=== PATIENT | male | born 1945 | race Caucasian/White ===

== ENCOUNTER 2019-03-17 11:26 | Inpatient (IN) ==
[2019-03-17 13:04] LABS: BASO# 0.02 X1000 (0.0-0.2); BASO% 0.3 % (0.0-0.8); EOS# 0.06 X1000 (0.0-0.7); HEMOGLOBIN 10.6 g/dL (14.0-18.0); IMM GRAN# 0.03 X1000 (0.0-0.04); IMM GRAN% 0.5 % (0.0-0.5); LYMPH# 0.24 X1000 (1.2-3.4); LYMPH% 3.9 % (20.5-51.1); MCH 31.3 PG (27-31); MCHC 33.1 g/dL (33-37); MCV 94.4 FL (81-99); MONO# 0.47 X1000 (0.11-0.59); MONO% 7.6 % (1.7-9.3); MPV 9.8 FL (7.4-10.4); NEUT% 86.7 % (42.2-75.2); PLT 210 X1000 (130-400); RBC 3.39 XMIL (4.7-6.1); RDW 15.7 % (11.5-14.5); WBC 6.22 X1000 (4.8-10.8)
--- NOTE | 2019-03-17 13:21 | EKG Report ---
Test Performed on : 03/17/2019 12:39:14 PM Test Reason : weakness Blood Pressure : / mmHG Vent. Rate : 060 BPM Atrial Rate : 060 BPM P-R Int : 284 ms QRS Dur : 138 ms QT Int : 468 ms P-R-T Axes : 070 -57 008 degrees QTc Int : 468 ms AV dual-paced rhythm with prolonged AV conduction Abnormal ECG When compared with ECG of 13-FEB-2019 19:38, (Unconfirmed) Electronic ventricular pacemaker has replaced Electronic atrial pacemaker Unconfirmed Result
[2019-03-17 13:24] LABS: AMYLASE 93 U/L (20-200); CK PROFILE 176 U/L (24-204); LIPASE 90 U/L (13-60)
[2019-03-17 13:29] LABS: AGAP 12; ALB/GLOB RATIO 1.2; ALBUMIN 4.1 g/dL (3.5-5.0); ALKALINE PHOSPHATASE 98 U/L (32-122); BUN 74 mg/dL (8-22); CALCIUM 9.3 mg/dL (8.8-10.2); CHLORIDE 97 mmol/L (98-107); COSMO 282; CREATININE 4.8 mg/dL (0.7-1.2); GLUCOSE 126 mg/dL (70-104); GOT 34 U/L (10-34); GPT 39 U/L (10-44); SODIUM 129 mmol/L (136-145); TCO2 20 mmol/L (25-35); TOTAL BILIRUBIN 0.65 mg/dL (0.20-1.00); TOTAL PROTEIN 7.6 g/dL (6.3-8.3)
[2019-03-17 13:30] LABS: POTASSIUM 7.9 mmol/L (3.5-5.1)
[2019-03-17] MEDS ORDERED: CALCIUM CHLORIDE 1 GM in NS 100 ML IV ONE (13:30)
[2019-03-17] MEDS ORDERED: ALBUTEROL NEB INH ONE (13:30)
[2019-03-17] MEDS ORDERED: HUMULIN R IV ONE (13:32)
[2019-03-17] MEDS ORDERED: D50W SYRINGE IV ONE (13:32)
--- NOTE | 2019-03-17 13:46 | ED EKG INTERP ---
This chart was entered by Laila De La Cruz Scribe, acting as scribe for Lilly Quiroz MD. EKG Interpretation - EKG Time of EKG reading by physician:: 12:39 EKG Read and Signed by:: Lilly Quiroz EKG Interpretation (*Must complete 3 of following elements*): Abnormal Rate: 60 Rhythm: AV dual paced rhythm w/ prolonged AV conduction [place]: normal QRS: normal OK Interval: prolonged ST Wave: normal Attestation - Physician/ SUSAN Attestation Patient care was provided by Advanced Practice Provider:: No The physician spent face to face time with patient:: Yes Advanced Practice Provider documentation review:: Supervising physician onsite and consulted in the evaluation and care of this patient. The physician did have a face to face encounter with the patient. This chart was documented by the indicated scribe, (Laila De La Cruz Scribe) and accurately reflects the services I performed and decisions made by me, Lilly Quiroz MD, as attested by the provider's signature.
--- NOTE | 2019-03-17 14:25 | PROVIDER DOCUMENTATION ---
This chart was entered by Kika Watkins Scribe, acting as scribe for Lilly Quiroz MD. HPI-General Adult - General Chief Complaint: Fall Stated Complaint: FALL Time Seen by Provider: 03/17/19 11:56 Source: patient, family (/son and grandson) Allergies/Adverse Reactions: Patient Allergies Allergy/AdvReac Type Severity Reaction Status Date / Time No Known Allergies Allergy Verified 01/17/16 23:52 Home Medications: Home Medication List Medication Instructions Recorded Confirmed Last Taken Type B2/Vits A,C,E/Lut/Zeaxanth/Min 1 cap PO DAILY 09/04/15 10/05/18 10/05/18 06:00 History [Icaps Tablet] Furosemide [Lasix] 80 mg PO DAILY 09/04/15 10/05/18 10/04/18 08:00 History [place]-3 Fatty Acids [Fish Oil] 2,400 mg PO DAILY 09/04/15 10/05/18 10/05/18 06:00 History Warfarin [Coumadin] 5 mg PO DAILY 01/17/16 10/05/18 10/04/18 21:00 History ATORVAstatin [Lipitor] 20 mg PO DAILY 10/04/18 10/05/18 10/04/18 21:00 History Amiodarone HCl 200 mg PO DAILY 10/04/18 10/05/18 10/05/18 06:00 History Diltiazem HCl [Cartia Xt] 180 mg PO DAILY 10/04/18 10/05/18 10/05/18 06:00 History Melatonin 8 mg PO HS 10/04/18 10/05/18 Unknown History Metoprolol Tartrate 25 mg PO BID 10/04/18 10/05/18 10/05/18 06:00 History Omeprazole 40 mg PO DAILY 10/04/18 10/05/18 10/05/18 06:00 History Pioglitazone HCl [Pioglitazone] 15 mg PO DAILY 10/04/18 10/05/18 10/04/18 08:00 History Sitagliptin Phos/Metformin HCl 1 ea PO DAILY 10/04/18 10/05/18 10/04/18 08:00 History [Janumet 50-1,000 mg Tablet] Zolpidem Tartrate 5 mg PO HS 04/02/19 04/03/19 Unknown History - History of Present Illness -Gen Adult Nature of Presenting Problems: 73 yowm presents to the ed with c/o generalized weakness with frequent falls. pt sts in last 24hrs he has fell 3x and in last 2 weeks has fell up to 15x. pt has bandage noted on rt lateral elbow from fall and has skin tear to lateral rt lower arm near wrist. pt has bruising noted to BUE. pt sts the weakness has been present 2 weeks and has been getting worse since onset. pt does have an appointment next week with dr santos to start dialysis. pt was sent to ed by dr leigh PCP for weakness. pt denies ESQUIVEL and denies LOC. pt has never hit head with falls sts he just becomes weak and slides to the floor from wheelchair or standing position Location of Pain/Injury: reports: upper extremity, lower extremity Quality of Pain: reports: other (weakness) Onset/Duration: reports: other (2 weeks) Timing: reports: still present, intermittent, getting worse Context/Activities at Onset: reports: light activity Modifying Factors: improves with: nothing Associated Symptoms: reports: weakness, trouble walking. denies: chest pain, diarrhea, fever/chills, headaches, nausea, shortness of breath, vomiting Similar Symptoms Previously?: Yes (weakness ) Recently seen or treated by another doctor?: Yes (dr leigh pcp sent to ed) Review of Systems - Adult - REVIEW OF SYSTEMS - ADULT Constitutional: denies: chills, fever Eyes: reports: no symptoms reported Ears, Nose, Mouth & Throat: reports: no symptoms reported Cardiovascular: denies: chest pain, palpitations, syncope Respiratory: denies: cough, shortness of breath, wheezing Gastrointestinal: denies: abdominal pain, diarrhea, nausea, vomiting Genitourinary: reports: no symptoms reported Musculoskeletal: reports: see HPI, muscle weakness. denies: back pain, neck pain Integumentary: reports: no symptoms reported Neurological: denies: dizziness/vertigo, headache/migraines Psychiatric: reports: no symptoms reported Endocrine: reports: no symptoms reported Hematologic/Lymphatic: reports: see HPI, easy bruising Allergic/Immunologic: reports: no symptoms reported All Other Systems: Reviewed and Negative Past History - Adult - PAST MEDICAL HISTORY-ADULT Review of Records: reports: Old Records Reviewed, Nursing Assessment Review, Medications Reviewed, Social history reviewed & non-contributory. Major Childhood Illnesses: reports: denies history Cardiovascular: reports: A-Fib, CHF, HTN, hyperlipidemia Respiratory: reports: COPD Gastrointestinal: reports: GERD Genitourinary: reports: kidney disease Musculoskeletal: reports: denies history Hand Dominance: Right Handed Neurological: reports: denies history Psychiatric: reports: denies history Endocrine/Immune: reports: Diabetes Diabetes Type: Type 2 Other Conditions: reports: other cancer (skin) - PRIOR SURGERIES/PROCEDURES Surgical/Procedure History: reports: pacemaker, tonsillectomy, orthopedic (extremity), joint replacement (total knee) - IMMUNIZATION STATUS Childhood Immunizations: See Nurse Assessment Flu Vaccine: See Nurse Assessment - FAMILY HISTORY Family History: reviewed, not pertinent - SOCIAL HISTORY Smoking: denies Substance Use: denies Living Situation: family Physical Exam-General - PHYSICAL EXAM-ADULT Initial Vital Signs Reviewed: Yes - CONSTITUTIONAL General Appearance: alert, no apparent distress, obese, other (generalized weakn ess) - EYES Eyes: PERRL/EOMI, pink conjunctivae - HEAD, EARS, NOSE, MOUTH & THROAT HENMT: moist mucous membranes - NECK Neck: non-tender, full range of motion, supple, normal inspection - RESPIRATORY Respiratory: chest non-tender, lungs clear, normal breath sounds - CARDIOVASCULAR Cardiovascular: normal peripheral pulses, regular rate, rhythm - CHEST (BREASTS) Chest/Breast: deferred - GASTROINTESTINAL (ABDOMEN) Abdominal Exam: normal bowel sounds, non tender, soft - GENITOURINARY Male Genitalia: deferred Rectal Exam: deferred Hemoccult Exam: deferred - LYMPHATIC Lymphatic: no adenopathy - MUSCULOSKELETAL Back Exam: normal inspection, no CVA tenderness, no vertebral tenderness Extremity: normal capillary refill, pelvis stable, erythema (BUE and bandage in place on rt lateral elbow and skin tear noted to rt arm lateral above wrist), other (pt c/o BUE weakness and has hard time holding BUE arms up due to weakness but has firm branch library clerk strength. pt can hold BLE up but sts when he tries to ambulate legs become weak and can not support his weight). negative: normal gait (secondary to weakness with frequent falls), tenderness - SKIN Integumentary: warm/dry, erythema (BUE), laceration(s) (skin tear noted to rt lower lateral arm) - NEUROLOGIC Neurologic: abnormal gait, other (proximal muscle weakness). negative: facial droop - PSYCHIATRIC Psych/Mental Status: normal mood/affect, normal thought content, normal thought process, oriented x 3 Progress - PLAN OF CARE/RESULTS Progress/Plan/Lab Results: Vital Signs - 8 hr 03/17/19 11:31 Temperature 97.7 F Pulse Rate 60 Respiratory Rate 16 Blood Pressure 107/53 O2 Sat by Pulse Oximetry 99 Orders Category Date Time Status EKG [EKG] Stat Ther 03/17/19 11:41 Ordered Result Diagrams: 03/17/19 12:14 03/17/19 12:14 - CONSULTS/PCP/HOSPITALIST Notification #1 *Consult/PCP/Hospitalist*: Dr Kumar Time Discussed: 13:55 Reason/Comments: need dialysis access Consult Disposition: other (Dr Kumar will see patient in hospital) #2 Consult: Alia Time Discussed: 14:23 Consult Disposition: Admit Departure - Departure Date of Disposition Decision: 03/17/19 Time of Disposition Decision: 14:24 DIAGNOSIS: Hyperkalemia, Proximal muscle weakness Disposition: ADMITTED INPATIENT 09 Certified Medical Emergency: Emergent Condition: Critical Referrals and Follow-Ups: Hair Leigh MD [Primary Care Provider] - - Critical Care Note This patient required my direct & personal management of CC.: Yes Total Time (mins): 31 Critical Care Statement: This patient required my direct personal management to treat or rule out processes, the absence of which, could potentiallly result in sudden, clinically significant life or limb threatening deterioration. Attestation - Physician/ SUSAN Attestation Patient care was provided by Advanced Practice Provider:: No The physician spent face to face time with patient:: Yes Advanced Practice Provider documentation review:: Supervising physician onsite and consulted in the evaluation and care of this patient. The physician did have a face to face encounter with the patient. This chart was documented by the indicated scribe, (Kika Watkins Scribe) and accurately reflects the services I performed and decisions made by me, Lilly Quiroz MD, as attested by the provider's signature.
[2019-03-17] MEDS ORDERED: NS 2,000 ML MISC PRN (14:30)
[2019-03-17] MEDS ORDERED: TYLENOL PO PRN (15:23)
[2019-03-17] MEDS ORDERED: ZOFRAN IV PRN (15:23)
--- NOTE | 2019-03-17 15:57 | HISTORY AND PHYSICAL ---
HISTORY OF PRESENT ILLNESS: This is a 73-year-old patient of Dr. Hair Leigh. He said he has been a little weaker and falling. He has had end-stage renal disease and it appears that his azotemia is at the point he needs to start dialysis. PAST MEDICAL HISTORY: Atrial fibrillation, diabetes mellitus type 2, diastolic heart failure, COPD, hyperlipidemia, pulmonary hypertension last measured in September 2017, pulmonary artery pressures are 88 mmHg, history of hypertension. PAST SURGICAL HISTORY: He has had a right knee arthroplasty, tonsillectomy, right ear and right ankle surgeries. ALLERGIES: No notable allergies. FAMILY HISTORY: Notable for heart disease in mother. Colon cancer and ovarian cancer in his sister. SOCIAL HISTORY: He does not smoke or drink or use drugs. He is . REVIEW OF SYSTEMS: General: He does not describe any weight gain or loss, fever, chills. HEENT: No change in visual or hearing acuity. Neck: No neck pain or cervical adenopathy. Respiratory: No increased work of breathing or dyspnea. Cardiovascular: No chest pain or tachy palpitation. Gastrointestinal and Genitourinary: No gross hematuria or dysuria. Musculoskeletal/Neurologic: No significant complaints. Endocrinologic/Hematologic: No significant history. PHYSICAL EXAMINATION: VITAL SIGNS: In the emergency room, temperature 97.7 degrees, pulse 62, respirations 18, blood pressure 130/62. He just finished getting his Vas-Cath in his right groin. GENERAL: He is awake and alert, oriented, pleasant. NECK: No distended neck veins. HEENT: Pupils are equal. Conjunctivae pink. Sclerae clear. CVP less than 6 cm. Oral and nasal mucosa unremarkable. LUNGS: Clear anterolateral. CARDIOVASCULAR EXAM: Regular rhythm and rate without murmur or S3. ABDOMEN: No distention of the abdomen. No complaints of abdominal pain. EXTREMITIES: Vas-Cath in the right femoral triangle. No pedal edema. SKIN: No skin lesions. NECK: Supple. No cervical adenopathy. LABORATORY DATA: White count 6220, hematocrit 32, platelet count 210,000. Sodium 129, potassium 7.9, chloride 97. BUN 76, creatinine 4.8. Albumin is 4.1, lipase is 90, amylase 93. ASSESSMENT AND PLAN: 1. End-stage renal disease stage 5 D. Preparing him for hemodialysis. We will talk to Dr. Antonio, but he does have hyperkalemia, and so I think we will go ahead and give him an amp of calcium gluconate, but he plans on doing dialysis today. 2. History of diastolic heart failure. He appears to be well compensated at this time. 3. Diabetes mellitus type 2. We will check blood sugars, put him on pattern sugars and sliding scale. 4. Hypertensive. We will watch his blood pressure. 5. History of hyperlipidemia. 6. Obstructive sleep apnea. 7. History of pulmonary hypertension with underlying chronic obstructive pulmonary disease. Air and gas exchange seem to be good. 8. Atrial fibrillation which is paroxysmal. Appears to be in sinus rhythm at this time. MEDICATIONS: He takes Lipitor 20 mg a day, amiodarone 200 mg a day, multivitamin, diltiazem or Cartia XT 180 mg a day, furosemide 80 mg p.o. daily, melatonin 8 mg at bedtime, metoprolol 25 mg b.i.d., fish oil 2500 mg p.o. daily, omeprazole 40 mg a day, pioglitazone 15 mg a day, Janumet 50- 1000 mg daily, Coumadin 5 mg daily, zolpidem or Ambien 5 mg at bedtime. We will continue all those. We will check his T4, TSH, B 12 and folate. We will make sure and follow his magnesium. Dr. Antonio of course will be starting him on hemodialysis. cc: Alfonso Alegre MD
[2019-03-17] MEDS: DUONEB (A & A) INH SCH ×2 (16:00→22:29)
[2019-03-17 19:34] LABS: INR 3.08; PROTIME 32.7 Seconds (11.0-16.0)
--- NOTE | 2019-03-17 19:42 | Diag Imaging Result Doc PS360 ---
EXAM: CHEST-PORTABLE INDICATION: sob; line placed TECHNIQUE: One view COMPARISON: 10/04/2018 FINDINGS: There is mild chronic interstitial thickening bilaterally, stable. The lungs are grossly clear, otherwise. There is no discrete pleural fluid collection or pneumothorax. The cardiomediastinal silhouette and central vasculature are grossly unremarkable. The pacemaker is stable. IMPRESSION: Stable chest with no definite acute pathology by plain radiograph. Electronically signed by Mele De La Cruz 03/17/2019 7:39 PM
[2019-03-17] MEDS: HUMULIN R SUBQ SCH ×2 (19:52→20:02)
[2019-03-17] MEDS: COUMADIN PO SCH (20:20)
--- NOTE | 2019-03-17 22:09 | OPERATIVE NOTE ---
PROCEDURE DATE: 03/17/2019 PROCEDURE PERFORMED: Right femoral vein Vas-Cath placement. SURGEON: Andi Kumar MD PREOPERATIVE DIAGNOSES: 1. Hyperkalemia. 2. Chronic renal failure. POSTOPERATIVE DIAGNOSES: 1. Hyperkalemia. 2. Chronic renal failure. FINDINGS: The right common femoral vein was identified in its normal anatomic position in the groin. It was compressible with no clot DESCRIPTION OF PROCEDURE: After informed consent was obtained, the right groin was prepped and draped in a sterile fashion. Local anesthesia was 1% lidocaine. We made a small stab incision. We accessed the right common femoral vein with ultrasound guidance. We then passed the guidewire without difficulty. We dilated the tract sequentially and then passed the Trialysis catheter. Blood came back in each lumen spontaneously. We then flushed each lumen with saline. We secured the flange to the skin with the nylon contained within the tray. ChloraPrep was applied additionally after we finished, and then a sterile OpSite was applied. He tolerated it well. cc: Andi Kumar MD [facility]
--- NOTE | 2019-03-17 22:56 | NEPHROLOGY CONSULTATION ---
DATE: 03/17/2019 REASON FOR CONSULTATION: Life-threatening hyperkalemia. HISTORY OF PRESENT ILLNESS: Mr. Green is a 73-year-old white male who has diabetes, hypertension, heart failure, etc. He has severe pulmonary hypertension. We have been discussing renal replacement therapy with him in the outpatient arena, but he has been unwilling to make any decisions. At his last encounter we provided written modality education and then arranged for him to come for a formal evaluation. His states he has interest in home dialysis. He has never had abdominal surgery. At any rate, he came to the hospital at this time because of profound weakness. These episodes have been increasing in severity and have resulted in falls or near falls over the last 2 weeks. He has never hit his head, frequently simply slides to the floor, perhaps as many as 15 falls in the last 2 weeks. He came to the emergency room where his initial evaluation found blood pressure 107/53 with heart rate 60 and respirations of 16. His initial EKG had wide complex but suggests pacing. He did have prolonged AV conduction but did not meet pattern for bundle branch block. His initial laboratory data found potassium 7.9, creatinine 4.8. PAST MEDICAL HISTORY: As above. HOME MEDICATIONS: Reviewed list includes multivitamin, furosemide, warfarin, atorvastatin, amiodarone, diltiazem, melatonin, metoprolol, omeprazole, pioglitazone, sitagliptin, metformin, zolpidem. ALLERGIES: None. SOCIAL HISTORY: He is , lives with his . FAMILY HISTORY: Otherwise noncontributory. REVIEW OF SYSTEMS: Otherwise noncontributory. PHYSICAL EXAMINATION: Vital Signs: Blood pressure 130/62, heart rate 62, respirations 18, afebrile. General: No acute distress. Skin: Warm and dry. Conjunctivae are pink. Neck: Veins are not distended. Heart: Regular. No gallops. Lungs: Equal. No crackles. Abdomen: Soft, nontender. Bowel sounds present. Extremities: No edema, clubbing or cyanosis. IMPRESSION: Life-threatening hyperkalemia in the context of stage 5 chronic kidney disease. I have counseled the patient and family regarding the severity of his illness. I have reviewed his initial care with the ER team and also have consulted Dr. Kumar for placement of Vas-Cath, and we will employ hemodialysis this afternoon. If he is interested in home dialysis, then we will work to facilitate that as rapidly as possible. cc: Reji Antonio MD
[2019-03-18 00:17] LABS: URINE SOURCE CLEAN CATCH
[2019-03-18 00:20] LABS: BILIRUBIN URINE NEGATIVE (NEGATIVE); BLOOD URINE NEGATIVE (NEGATIVE); COLOR YELLOW; GLUCOSE URINE TRACE mg/dL (NEGATIVE); KETONE URINE NEGATIVE (NEGATIVE); LEUKOCYTES URINE NEGATIVE (NEGATIVE); NITRITE URINE NEGATIVE (NEGATIVE); PROTEIN URINE TRACE mg/dL (NEGATIVE); SP GRAVITY URINE 1.013; TURBIDITY URINE CLEAR (CLEAR); UROBILINOGEN URINE NORMAL (NORMAL)
[2019-03-18 00:21] LABS: UR EPITHELIAL CELLS <10 /HPF (<10); URINE BACTERIA NEGATIVE /HPF; URINE RBC <10 /HPF (<10); URINE WBC <10 /HPF (<10)
[2019-03-18] MEDS: DUONEB (A & A) INH SCH ×4 (02:56→22:19)
[2019-03-18] MEDS: HUMULIN R SUBQ SCH ×4 (06:06→20:48)
[2019-03-18 06:36] LABS: INR 2.87; PROTIME 30.9 Seconds (11.0-16.0)
[2019-03-18 06:48] LABS: ALB/GLOB RATIO 1.2; ALBUMIN 3.7 g/dL (3.5-5.0); CALCIUM 8.8 mg/dL (8.8-10.2); CREATININE 4.5 mg/dL (0.7-1.2); MAGNESIUM 2.1 mg/dL (1.5-2.7); TOTAL BILIRUBIN 0.59 mg/dL (0.20-1.00); TOTAL PROTEIN 6.8 g/dL (6.3-8.3)
[2019-03-18 07:05] LABS: BASO# 0.01 X1000 (0.0-0.2); BASO% 0.2 % (0.0-0.8); EOS# 0.03 X1000 (0.0-0.7); EOS% 0.6 % (0.0-10.0); HEMOGLOBIN 8.8 g/dL (14.0-18.0); LYMPH# 0.37 X1000 (1.2-3.4); LYMPH% 7.6 % (20.5-51.1); MCH 31.1 PG (27-31); MCHC 32.6 g/dL (33-37); MCV 95.4 FL (81-99); MONO# 0.61 X1000 (0.11-0.59); MONO% 12.4 % (1.7-9.3); MPV 10.1 FL (7.4-10.4); NEUT# 3.88 X1000 (1.4-6.5); NEUT% 79.2 % (42.2-75.2); PLT 153 X1000 (130-400); RBC 2.83 XMIL (4.7-6.1); RDW 15.8 % (11.5-14.5)
[2019-03-18 07:32] LABS: POTASSIUM 6.2 mmol/L (3.5-5.1)
--- NOTE | 2019-03-18 08:18 | EKG Report ---
Test Performed on : 03/18/2019 07:17:10 AM Test Reason : hyperkalemia Blood Pressure : / mmHG Vent. Rate : 063 BPM Atrial Rate : 063 BPM P-R Int : 154 ms QRS Dur : 106 ms QT Int : 438 ms P-R-T Axes : 066 011 027 degrees QTc Int : 448 ms Normal sinus rhythm. Normal ECG When compared with ECG of 17-MAR-2019 12:39, (Unconfirmed) no pacing complexes are evident Confirmed by Laith CARABALLO, Bhupinder Real ([id number]) on 03/18/2019 9:18:31 AM
--- NOTE | 2019-03-18 08:44 | Diag Imaging Result Doc PS360 ---
EXAM: CHEST-PORTABLE INDICATION: sob TECHNIQUE: One view COMPARISON: 03/17/2019 FINDINGS: Chronic appearing interstitial thickening bilaterally is again noted that is stable. No new consolidation is identified. Cardiac silhouette is stable. IMPRESSION: Stable chest. Electronically signed by Mele De La Cruz 03/18/2019 8:42 AM
[2019-03-18] MEDS ORDERED: TIGHT: 0.2 ML/HR FOR DIALYSIS MISC PRN (11:53)
[2019-03-18] MEDS ORDERED: HEPARIN IV PRN (11:53)
[2019-03-18] MEDS ORDERED: NS 2,000 ML MISC PRN (11:53)
--- NOTE | 2019-03-18 14:43 | GENERAL SURGERY PROGRESS NOTE ---
DATE: 03/18/2019 Mr. Green's right groin site is dry. He tolerated dialysis satisfactorily. No further recommendations at this time. cc: Andi Kumar MD
--- NOTE | 2019-03-18 15:49 | NEPHROLOGY PROGRESS NOTE ---
DATE: 03/18/2019 SUBJECTIVE: He feels better this morning. He has not been out of bed yet. Ate his breakfast. No shortness of breath. OBJECTIVE: Vital Signs: Blood pressure 99/53, heart rate 71, respiration 19. Afebrile. General: No acute distress. Skin: Warm and dry. Conjunctivae are pink. Neck: Neck veins are not distended. Heart: Regular. Lungs: Equal. Abdomen: Benign. Extremities: No edema. IMPRESSION: CKD 5D with hyperkalemia. Potassium 6.2 today. Dialysis today using a 2 potassium bath for 3.5 hours. No ultrafiltration volume. He can start getting up today. We will ask Dr. Kumar for tunneled catheter on Wednesday. He can move out to the floor from my perspective today and perhaps be able be discharged Wednesday after dialysis if he is doing well. cc: Reji Antonio MD
[2019-03-18] MEDS: COUMADIN PO SCH (20:48)
[2019-03-19] MEDS: DUONEB (A & A) INH SCH ×4 (03:29→22:02)
[2019-03-19] MEDS: HUMULIN R SUBQ SCH ×4 (06:18→20:54)
[2019-03-19 09:13] LABS: INR 2.54; PROTIME 28.1 Seconds (11.0-16.0)
--- NOTE | 2019-03-19 11:27 | GENERAL SURGERY PROGRESS NOTE ---
DATE: 03/19/2019 He is dialyzing satisfactorily. I have been asked to place a tunnel catheter. I will look at timing. He will need to come off his warfarin in order to place his tunnel catheter. cc: Andi Kumar MD
[2019-03-19 12:07] LABS: HEPATITIS PROFILE ACUTE SEE COMMENTS
[2019-03-19] MEDS ORDERED: MELATONIN PO PRN (12:58)
--- NOTE | 2019-03-19 13:17 | PROGRESS NOTE ---
DATE: 03/19/2019 SUBJECTIVE: Mr. Green is feeling much better. He was sitting up in a chair. I think we can let him go to a floor. OBJECTIVE: Vital Signs: Temperature 98.1 degrees, pulse 73, respirations 16, blood pressure 121/66. HEENT: Pupils are equal and round. Lungs: Clear in all lung ennis. Cardiovascular: Regular rhythm and rate without murmur or S3. Urine output was 1500 mL. Blood sugars 120, 120, and 153. ASSESSMENT AND PLAN: 1. Chronic kidney disease stage 5D. Presented with hyperkalemia. Potassium was above 7 yesterday. Potassium is 6.2 today. He is getting dialyzed using a 2-potassium bath, and start increasing his activity. He feels much better. I think we can move him to a floor. 2. Diastolic heart failure, which appears well compensated. 3. Diabetes mellitus type 2. Sugars under good control. 4. Hypertension. 5. History of hyperlipidemia. 6. Obstructive sleep apnea. 7. History of pulmonary hypertension and underlying chronic obstructive pulmonary disease. He is not having any respiratory difficulty. 8. Atrial fibrillation, which is paroxysmal. REVIEW OF ORDERS: He is on Tylenol, and really nothing else at this point. As far as resuming his previous medications, will put him back on his Cardizem, and I will put him back on his melatonin and his metoprolol, which is 25 mg b.i.d., his carlos 3 fatty acids, and his omeprazole. I will put him back on his sitagliptin, metformin. Will put him back on his Zoloft. I am going to hold his spironolactone, and he is on his 5 mg of Coumadin. Will put him back on his atorvastatin and his amiodarone. cc: Alfonso Alegre MD
[2019-03-19] MEDS: LOPRESSOR PO SCH (20:56)
[2019-03-19] MEDS: MELATONIN PO PRN (20:56)
[2019-03-20] MEDS: DUONEB (A & A) INH SCH ×4 (03:24→21:10)
[2019-03-20] MEDS: PRILOSEC PO SCH (05:59)
[2019-03-20] MEDS: HUMULIN R SUBQ SCH ×4 (06:00→20:54)
[2019-03-20] MEDS ORDERED: NS 2,000 ML MISC PRN (06:13)
[2019-03-20] MEDS ORDERED: HEPARIN IV PRN (06:13)
[2019-03-20] MEDS ORDERED: TIGHT: 0.2 ML/HR FOR DIALYSIS MISC PRN (06:13)
[2019-03-20 08:15] LABS: ALBUMIN 3.3 g/dL (3.5-5.0); CALCIUM 8.1 mg/dL (8.8-10.2); CREATININE 3.3 mg/dL (0.7-1.2); PHOSPHORUS 3.6 mg/dL (2.7-4.5); POTASSIUM 5.4 mmol/L (3.5-5.1)
[2019-03-20 08:21] LABS: INR 2.58; PROTIME 28.4 Seconds (11.0-16.0)
[2019-03-20] MEDS: ZOLOFT PO SCH (13:26)
[2019-03-20] MEDS: LIPITOR PO SCH (13:26)
[2019-03-20] MEDS: FISH OIL CONCENTRATE PO SCH (13:26)
[2019-03-20] MEDS: CORDARONE PO SCH (13:26)
--- NOTE | 2019-03-20 15:56 | NEPHROLOGY PROGRESS NOTE ---
DATE: 03/20/2019 SUBJECTIVE: Mr. Green is sitting up in bed. He is eating his breakfast. His is at his bedside. States that he is feeling much better. OBJECTIVE: His temperature is 98.3 degrees, blood pressure 132/61, heart rate 65, respirations 20. He is on room air. Last recorded saturation 98%. He has had 720 in. He has had 700 out to void. LABORATORY DATA: Sodium 132, potassium 5.4, chloride 97, CO2 25, BUN 34, creatinine 3.3, glucose 123. His anion gap is 10, calcium 8.1, phosphorus 3.6, albumin 3.3. Previous hemoglobin of 8.8. Patient has a PT of 28.4 with an INR of 2.58 today. PHYSICAL EXAMINATION: General: This is a 73-year-old white male. He is currently resting quietly, sitting up in bed and eating. He appears chronically ill in no acute distress. Skin: Warm and dry. HEENT: Normocephalic, atraumatic. Conjunctiva is pale. He has MAYTE. Mucous membranes are dry. Neck: Supple. Trachea midline. No evidence of JVD. Cardiovascular: Regular rate and rhythm. No murmur or gallop. Lungs: Clear to auscultation bilaterally. Equal excursion on room air. Abdomen: Slightly distended, soft, nontender. Positive bowel sounds. Genitourinary: Not inspected. Patient has been voiding adequate amount documented. Extremities: Has no edema. No clubbing or cyanosis. Integumentary: Patient has dressing to his right elbow in several different spots with different stages of healing of ecchymosis to bilateral upper and lower extremities. The patient has a Vas-Cath to his right groin. This has some residual dried blood under the dressing. Neurologic: Alert and oriented x3. ASSESSMENT AND PLAN: 1. Chronic kidney disease stage 5. The patient was recently started on hemodialysis for hyperkalemia and uremic symptoms. He is doing much better. His potassium has improved. We will plan for dialysis again today. We will plan for a removal of his Vas- Cath and placement of dialysis tunneled catheter per Dr. Kumar for patient for discharge on Wednesday or Wednesday. Otherwise, we will set up an outpatient directive for his family upon discharge. 2. Electrolytes, acid-base balance. These are acceptable with correction on dialysis. 3. Anemia. This remains low but stable. 4. Uremic symptoms associated with hyperkalemia and falls. Potassium has improved with dialysis. His uremic symptoms are improving. We will continue to monitor on an outpatient basis. I would like to thank you for allowing us to follow with this patient. Dictated by ALFRED Delaney for Reji Antonio MD Face to face encounter, data reviewed, discussed with Yo Hall on 03/21/19. I agree with the above assessment and plan of care. cc: ALFRED Delaney MD [facility]
--- NOTE | 2019-03-20 17:37 | PROGRESS NOTE ---
DATE: 03/20/2019 SUBJECTIVE: Mr. Green got dialysis this morning. He feels much better. He was eating lunch. No complaints. Blood pressure was a little low when he 1st got back, so we did hold his dose of Lopressor. OBJECTIVE: Vital Signs: Temperature 97.9 degrees, pulse 62, respirations 14, blood pressure 126/57. HEENT: Pupils equal, round. Lungs: Clear in all lung ennis. Cardiovascular: Regular rhythm and rate without murmur or S2. LABORATORY DATA: Blood sugar 103-115-147. ASSESSMENT AND PLAN: 1. Chronic kidney disease stage 5D presented with hyperkalemia. Potassium was above 7 and so I have gotten him dialyzed on a low-potassium bath. Doing well. I think the plan is to put a tunneled catheter in. 2. Diastolic heart failure. Appears to be well compensated. 3. Diabetes mellitus type 2. Sugar is under good control. 4. Hypertension. 5. History of hyperlipidemia. 6. Obstructive sleep apnea. No breathing issues. 7. History of pulmonary hypertension with his underlying chronic obstructive pulmonary disease. 8. History of atrial fibrillation. History of paroxysmal atrial fibrillation. Appears to remain in sinus rhythm. REVIEW OF HIS ORDERS: On review of his lab, I do not see any changes. Potassium has come down. cc: Alfonso Alegre MD
[2019-03-20] MEDS: CARDIZEM CD PO SCH (18:14)
[2019-03-20] MEDS: LOPRESSOR PO SCH ×2 (18:15→20:54)
--- NOTE | 2019-03-20 22:38 | GENERAL SURGERY PROGRESS NOTE ---
DATE: 03/20/2019 SUBJECTIVE: His femoral vein site is okay. Potassium is down to 5.4. His ProTime was 28.4 with an INR of 2.58 today. We will recheck it tomorrow. We will tentatively plan tunneled dialysis catheter placement tomorrow afternoon. I discussed it with him. He understands and agrees to proceed. cc: Andi Kumar MD
[2019-03-21] MEDS: DUONEB (A & A) INH SCH ×4 (04:03→21:40)
[2019-03-21] MEDS: HUMULIN R SUBQ SCH ×3 (06:18→20:55)
[2019-03-21 06:29] LABS: ALBUMIN 3.4 g/dL (3.5-5.0); CALCIUM 8.2 mg/dL (8.8-10.2); CREATININE 2.5 mg/dL (0.7-1.2); PHOSPHORUS 2.9 mg/dL (2.7-4.5); POTASSIUM 4.9 mmol/L (3.5-5.1)
[2019-03-21 09:26] LABS: INR 2.07; PROTIME 23.8 Seconds (11.0-16.0)
[2019-03-21] MEDS: CORDARONE PO SCH (10:18)
[2019-03-21] MEDS: ZOLOFT PO SCH (10:18)
[2019-03-21] MEDS: PRILOSEC PO SCH (10:18)
[2019-03-21] MEDS: LOPRESSOR PO SCH ×2 (10:18→20:57)
[2019-03-21] MEDS: FISH OIL CONCENTRATE PO SCH (10:19)
[2019-03-21] MEDS: LIPITOR PO SCH (10:20)
[2019-03-21] MEDS: CARDIZEM CD PO SCH ×2 (10:24→18:11)
--- NOTE | 2019-03-21 11:14 | PROVIDER PROGRESS NOTE ---
- Subjective Mr. Green refers to feel better. No more falls. Feels stronger. Participating with PT. He is pending HD cath placement Physical Exam Objective Vital Signs - 8 hr 03/21/19 04:00 03/21/19 07:51 03/21/19 08:00 Temperature 98.1 F 97.4 F L Pulse Rate 77 67 67 Respiratory Rate 16 18 18 Blood Pressure 116/58 108/59 O2 Sat by Pulse Oximetry 98 92 L 92 L - Constitutional General Appearance: appears well, alert, no apparent distress - HEAD, EARS, NOSE, MOUTH & THROAT HENMT: normocephalic/atraumatic - NECK Neck: non-tender, full range of motion, supple, normal inspection - RESPIRATORY Respiratory: lungs clear - CARDIOVASCULAR Cardiovascular: regular rate, rhythm, no gallop, no JVD, no murmur (pacient with a pacemaker generator on the left anterior chest wall) - GASTROINTESTINAL (ABDOMEN) Abdominal Exam: normal bowel sounds, non tender, soft, no organomegaly, no pulsatile mass - GENITOURINARY Female Genitalia/Pelvic Exam: deferred - MUSCULOSKELETAL Extremity: normal range of motion Peripheral Pulses: dorsalis-pedis (R): 2+, dorsalis-pedis (L): 2+ - SKIN Integumentary: normal color, normal turgor, warm/dry, abrasion(s) - NEUROLOGIC Neurologic: grossly normal - PSYCHIATRIC Psych/Mental Status: normal mood/affect Active Medications Generic Name Dose Route Start Last Admin Trade Name Freq PRN Reason Stop Dose Admin Acetaminophen 650 mg 03/17/19 15:23 Tylenol PO Q6H PRN PRN Fever or Pain Albuterol/Ipratropium 3 ml 03/17/19 16:00 03/21/19 07:59 Duoneb (A & A) INH 3 ml RTQ6H YASSINE Administration Amiodarone HCl 200 mg 03/20/19 09:00 03/21/19 10:18 Cordarone PO 200 mg DAILY YASSINE Administration Atorvastatin Calcium 20 mg 03/20/19 09:00 03/21/19 10:20 Lipitor PO Not Given DAILY YASSINE Diltiazem HCl 120 mg 03/21/19 10:30 Cardizem Cd PO DAILY [facility] Insulin Human Regular 0 unit 03/17/19 16:00 03/21/19 06:18 Humulin R SUBQ Not Given 0700,1100,1600,2100 [facility] Protocol Melatonin 5 mg 03/19/19 12:58 03/19/19 20:56 Melatonin PO 5 mg HS PRN PRN Administration Sleep Melatonin 3 mg 03/19/19 13:06 03/19/19 20:56 Melatonin PO 3 mg HS PRN PRN Administration Sleep Metoprolol Tartrate 25 mg 03/19/19 21:00 03/21/19 10:18 Lopressor PO 25 mg BID YASSINE Administration [place]-3/[place]-6/[place]-9 Fatty Acids 2,000 mg 03/20/19 09:00 03/21/19 10:19 Fish Oil Concentrate PO Not Given DAILY YASSINE Omeprazole 40 mg 03/20/19 07:00 03/21/19 10:18 Prilosec PO 40 mg DAILY@0700 YASSINE Administration Ondansetron HCl 4 mg 03/17/19 15:23 Zofran IV Q4H PRN PRN Nausea And Vomiting Sertraline HCl 50 mg 03/20/19 09:00 03/21/19 10:18 Zoloft PO 50 mg DAILY YASSINE Administration Laboratory Results - last 24 hr 03/20/19 03/20/19 03/20/19 07:00 12:44 16:26 PT INR Sodium Potassium Chloride Carbon Dioxide Anion Gap BUN Creatinine Estimated GFR/1.73 m2 BUN/Creatinine Ratio Glucose POC Glucose 147 H 142 H Calculated Osmolality Calcium Phosphorus Albumin Blood Type Blood Type Confirm O POSITIVE Antibody Screen 03/20/19 03/21/19 03/21/19 19:47 04:41 05:56 PT INR Sodium 133 L Potassium 4.9 Chloride 99 Carbon Dioxide 22 L Anion Gap 12 BUN 23 H Creatinine 2.5 H Estimated GFR/1.73 m2 25 BUN/Creatinine Ratio 9 Glucose 117 H POC Glucose 134 H 116 H Calculated Osmolality 271 Calcium 8.2 L Phosphorus 2.9 Albumin 3.4 L Blood Type Blood Type Confirm Antibody Screen 03/21/19 03/21/19 03/21/19 08:35 08:35 10:55 PT 23.8 H INR 2.07 Sodium Potassium Chloride Carbon Dioxide Anion Gap BUN Creatinine Estimated GFR/1.73 m2 BUN/Creatinine Ratio Glucose POC Glucose 133 H Calculated Osmolality Calcium Phosphorus Albumin Blood Type O POSITIVE Blood Type Confirm Antibody Screen NEGATIVE - Assessment & Plan (1) Proximal muscle weakness Status: Acute Plan: Patient is getting stronger. Will continue with PT (2) CKD (chronic kidney disease) stage 5, GFR less than 15 ml/min Status: Acute Plan: Patient has had multiple sessions of HD. Pending tunnel catheter placement today for outpatient dialysis Nephrology is on board (3) Hyperkalemia Status: Acute Plan: Improved with Dialysis (4) Paroxysmal A-fib Status: Acute Plan: currently rate controlled. Continue with medications.
[2019-03-21] MEDS ORDERED: DIPRIVAN 1% ONE (14:01)
[2019-03-21] MEDS ORDERED: ROBINUL ONE (14:02)
[2019-03-21] MEDS ORDERED: XYLOCAINE-MPF 2% ONE (14:02)
[2019-03-21] MEDS ORDERED: XYLOCAINE 1%/EPI 1:100,000 ONE (14:10)
[2019-03-21] MEDS ORDERED: HEPARIN ONE (14:10)
[2019-03-21] MEDS ORDERED: NS 250 ML ONE (14:10)
[2019-03-21] MEDS ORDERED: KEFZOL 1 GM/D5W 1 GM/50 ML IVPB ONE (15:53)
[2019-03-21] MEDS ORDERED: VENTOLIN HFA ONE (16:02)
--- NOTE | 2019-03-21 18:27 | NEPHROLOGY PROGRESS NOTE ---
DATE: 03/21/2019 TIME SEEN: 08 SUBJECTIVE: Mr. Green is resting quietly in bed. He denies any chest pain. No increased work of breathing. He is waiting for his breakfast and is reading his paper. OBJECTIVE: Vital Signs: Temperature 98 degrees blood pressure 108/60, heart rate 64, respirations 18, he is on room air, last recorded saturation 99%. Intake and Output: He has had 860 in. He has had 1200 out with dialysis and void yesterday. LABORATORY DATA: Sodium is 133, potassium 4.9, chloride 99, CO2 of 22, BUN 23, creatinine 2.5, glucose is 117, his anion gap is 12, his calcium 8.2, phosphorus 2.9, albumin 3.4. Hemoglobin of 8.8. PHYSICAL EXAMINATION: General: This is a 73-year-old white male, resting quietly in bed, sitting up, reading the paper. Appears in no acute distress. Skin: Warm and dry. HEENT: Normocephalic, atraumatic. Conjunctivae pale. He has MAYTE. Mucous membranes are dry. Neck: Supple. Trachea midline. No JVD. Cardiovascular: Regular rate and rhythm. No murmur or gallop appreciated. Lungs: Clear to auscultation bilaterally, equal excursion on room air. Abdomen: Nontender. Positive bowel sounds. Genitourinary: Not inspected. Voiding with adequate amounts with dialysis assist. Extremities: With no edema. No clubbing or cyanosis. The patient continues with Vas-Cath to the right groin. This is dry and intact. Integumentary: No rashes or lesions evident, though he does have different stages of ecchymoses and healing to bilateral upper and lower extremity secondary to fall. Neurological: Patient is alert and oriented x3. ASSESSMENT AND PLAN: 1. Chronic kidney disease, stage 5D. Patient has recently started on hemodialysis. He currently has a Vas-Cath to the right groin. He is n.p.o. today with a dialysis tunneled catheter placement per Dr. Kumar this afternoon. After this is complete, patient is to be planned for discharge for outpatient dialysis. 2. Electrolytes and acid-base balance with correction on dialysis. 3. Anemia. This remains low but stable. 4. Uremic symptoms with hyperkalemia. This has improved secondary to multiple treatments with dialysis. I would like to thank you for allowing us to follow with this patient. Dictated by ALFRED Delaney for Reji Antonio MD Face to face encounter, data reviewed, discussed with Yo Hall on 03/21/19. I agree with the above assessment and plan of care. cc: ALFRED Delaney MD [facility]
--- NOTE | 2019-03-21 21:26 | OPERATIVE NOTE ---
PROCEDURE DATE: 03/21/2019 PROCEDURE: Placement of right internal jugular vein tunneled dialysis catheter with ultrasound and fluoroscopic guidance. Removal of right femoral vein Vas-Cath. SURGEON: Andi Kumar MD. TAFE REGISTRAR: Candy. PREOPERATIVE DIAGNOSIS: Chronic kidney disease 5. POSTOPERATIVE DIAGNOSIS: Chronic kidney disease 5. FINDINGS: The ultrasound was done showing a patent right internal jugular vein. The fluoroscopy showed right-sided superior vena cava. DESCRIPTION OF PROCEDURE: Satisfactory IV sedation accomplished. The right upper anterior chest and neck were prepped and draped in a sterile fashion. Local anesthesia achieved 1% lidocaine with epinephrine in the skin of the neck and below the clavicle with ultrasound findings noted above. We made a stab incision and accessed the internal jugular vein and passed the guidewire with fluoroscopic guidance into the superior vena cava to the junction the right atrium. We then made incision below the clavicle and tunneled the 19 cm precurved catheter from the subclavian incision and neck incision, we then dilated the tract sequentially and passed the dilator and introducer sheath over the guidewire removed the dilator and guidewire, introduced the GlidePath catheter through the sheath into the superior vena cava. We were able to aspirate and irrigate easily first with Hep-Lock, we then used stronger heparin 5000 per mL with 1.7 mL in 1 lumen, 1.7 mL in the other lumen. We secured the flange to the skin with the 2-0 nylon. 4 Polysorb stitches placed in the subcutaneous tissue of the neck incision. Telfa and sterile OpSites were applied. We turned our attention to the right groin. We cut the stitches to the femoral vein Vas- Cath removed it, held gentle pressure until hemostasis was achieved. Tolerated procedure satisfactorily, was sent to the recovery room in satisfactory condition. cc: Reji Antonio MD
[2019-03-21] MEDS: MELATONIN PO PRN (22:08)
[2019-03-22] MEDS: DUONEB (A & A) INH SCH ×4 (03:36→21:05)
[2019-03-22 06:00] LABS: ALBUMIN 3.1 g/dL (3.5-5.0); CALCIUM 8.2 mg/dL (8.8-10.2); CREATININE 2.7 mg/dL (0.7-1.2); PHOSPHORUS 3.2 mg/dL (2.7-4.5); POTASSIUM 4.9 mmol/L (3.5-5.1)
[2019-03-22 06:05] LABS: INR 1.67
[2019-03-22] MEDS: HUMULIN R SUBQ SCH ×4 (06:14→21:09)
[2019-03-22] MEDS ORDERED: NS 2,000 ML MISC PRN (06:22)
[2019-03-22] MEDS ORDERED: TIGHT: 0.2 ML/HR FOR DIALYSIS MISC PRN (06:22)
[2019-03-22] MEDS ORDERED: HEPARIN IV PRN (06:22)
[2019-03-22] MEDS: PRILOSEC PO SCH (06:30)
[2019-03-22 09:10] LABS: BASO# 0.03 X1000 (0.0-0.2); BASO% 0.6 % (0.0-0.8); EOS# 0.18 X1000 (0.0-0.7); EOS% 3.6 % (0.0-10.0); HEMATOCRIT 25.8 % (42.0-52.0); HEMOGLOBIN 8.3 g/dL (14.0-18.0); LYMPH# 0.26 X1000 (1.2-3.4); LYMPH% 5.1 % (20.5-51.1); MCH 31.4 PG (27-31); MCHC 32.2 g/dL (33-37); MCV 97.7 FL (81-99); MONO# 0.57 X1000 (0.11-0.59); MONO% 11.3 % (1.7-9.3); MPV 10.2 FL (7.4-10.4); NEUT# 4.01 X1000 (1.4-6.5); NEUT% 79.4 % (42.2-75.2); PLT 133 X1000 (130-400); RBC 2.64 XMIL (4.7-6.1); RDW 15.8 % (11.5-14.5); WBC 5.05 X1000 (4.8-10.8)
--- NOTE | 2019-03-22 12:18 | GENERAL SURGERY PROGRESS NOTE ---
DATE: 03/22/2019 He is postop day 1 after a tunneled catheter placement. He oozed around his catheter exit site through the night. Today, the bandage is changed and a new sterile dressing is applied. He will not get heparin today on dialysis. His groin puncture site is fine. cc: Andi Kumar MD
[2019-03-22] MEDS: ZOLOFT PO SCH (13:43)
[2019-03-22] MEDS: CORDARONE PO SCH (13:43)
[2019-03-22] MEDS: FISH OIL CONCENTRATE PO SCH (13:43)
[2019-03-22] MEDS: CARDIZEM CD PO SCH (13:44)
[2019-03-22] MEDS: LIPITOR PO SCH (13:44)
[2019-03-22] MEDS: LOPRESSOR PO SCH ×2 (13:45→21:10)
--- NOTE | 2019-03-22 14:40 | NEPHROLOGY PROGRESS NOTE ---
DATE: 03/22/2019 TIME SEEN: 0745. SUBJECTIVE: Mr. Green is resting quietly in bed. He is getting ready to eat his breakfast. He has no complaints. States he is feeling better. He has had some oozing to his right tunneled catheter during the night. OBJECTIVE: Vital Signs: Temperature 98.1 degrees, blood pressure 113/57, heart rate 60, respirations 14. He is on room air. Last recorded saturation 96%. He has had 500 in. He has had 301 out to void with dialysis today. Laboratory Data: Sodium 134, potassium 4.9, chloride is 100, CO2 is 23, BUN 28, creatinine 2.7, glucose 129, his anion gap is 11, his calcium is 8.2, phosphorus 3.2, albumin 3.1. Previous hemoglobin 8.8 down to 8.3 today, white count 5.05, hemoglobin 25.8, with a platelet count of 133,000. Physical Examination: General: This is a 73-year-old, white male resting quietly in bed. He appears in no acute distress. His skin is warm and dry. HEENT: Normocephalic, atraumatic. Conjunctivae pale. He has MAYTE. Mucous membranes are dry. Neck: Supple. Trachea midline. No evidence of JVD. Cardiovascular: He has regular rate and rhythm. He is without murmur or gallop. Lungs: Clear to auscultation bilaterally. Equal excursion, on room air. Abdomen: Soft, nontender. Positive bowel sounds. Genitourinary: Not inspected. Patient has been voiding with dialysis assist. Extremities: Have no edema. No clubbing or cyanosis. Integumentary: Tunneled catheter to the right chest wall. Some residual drainage under the dressing. Right groin has Band-Aid intact. No drainage noted at that site. Neurologic: Alert and oriented x3. ASSESSMENT AND PLAN: 1. Chronic kidney disease stage 5. Patient is due to start on an outpatient hemodialysis. Vas- Cath has been removed to the right groin. He has a dialysis tunneled catheter to the right chest wall. He is to dialyze today. We will place him on a 2 K bath. He is to dialyze for 3.5 hours. We will attempt to pull 2 L of ultrafiltration. 2. Electrolytes and acid-base balance, with correction on dialysis. 3. Anemia. This is low but stable. 4. Uremic symptoms with hyperkalemia. These have resolved after starting on dialysis. 5. Recent tunneled dialysis catheter placement to the right chest wall per Dr. Kumar. Plan for dialysis today and discharge and follow up on an outpatient basis. 6. Exit site bleeding. Conservative care. He is anticoagulated. rg I would like to thank you for allowing us to follow with this patient. Dictated by ALFRED Delaney for Reji Antonio MD Face to face encounter, data reviewed, discussed with Yo Hall on 03/22/19. I agree with the above assessment and plan of care. efrem cc: ALFRED Delaney MD [facility]
[2019-03-22 15:58] LABS: HEMATOCRIT 26.1 % (42.0-52.0); HEMOGLOBIN 8.5 g/dL (14.0-18.0)
--- NOTE | 2019-03-22 16:24 | PROGRESS NOTE ---
DATE: 03/22/2019 SUBJECTIVE: This morning Mr. Green refers to be doing fairly okay. Did not have any new complaints, except he said there have been multiple changes of the dressing over the tunnel cath. When I went to see him during dialysis, they were just about to do another change of the dressing. OBJECTIVE: Vital signs: Blood pressure is 107/56, pulse of 60, respirations 15 and temperature 97.7 degrees. General exam: Mr. Green is a 73-year-old elderly male. He was in bed, no distress. HEENT: Mucosa is pink and moist. Anicteric. Acyanotic. Neck: Supple. Chest: Good air entry bilateral. There were no crepitations, no rhonchi. Cardiovascular: Irregularly irregular, but rate controlled. No murmurs. Abdomen: Soft, nontender. Bowel sounds were present. Extremities: No pedal edema. There is a recent tunnel cath on the left anterior chest wall. LABOR RELATIONS SPECIALIST: Patient was awake, alert, and oriented. There was no focal neurological deficit. LABORATORY DATA: Hemoglobin was 8.3. Rest of CBC was unremarkable. INR was 1.67. Chemistries show renal failure. CURRENT MEDICATIONS: Have all been reviewed. No changes. ASSESSMENT: 1. Generalized weakness secondary to end-stage renal disease, improved. 2. Chronic kidney disease stage V needing dialysis. The patient had a tunnel catheter placed yesterday. Dialysis has been done today. 3. Hyperkalemia, resolved. 4. Paroxysmal atrial fibrillation. The patient is on metoprolol, amiodarone, diltiazem and Coumadin. 5. Normocytic anemia. 6. Diabetes mellitus on insulin regimen. PLAN: Exit site bleeding at the level of the of the dialysis tunnel cath. We will continue with conservative management. We will repeat the patient's hemoglobin/hematocrit later on today to make sure that there is no transfusion needed. Patient has been evaluated by Surgery as well. cc: Deacon Blackman MD
[2019-03-22] MEDS: MIRALAX PO SCH (20:37)
[2019-03-22] MEDS ORDERED: COUMADIN PO SCH (21:00)
[2019-03-23] MEDS: DUONEB (A & A) INH SCH ×2 (03:47→09:17)
[2019-03-23 05:24] LABS: HEMATOCRIT 22.9 % (42.0-52.0); HEMOGLOBIN 7.4 g/dL (14.0-18.0); MCH 31.4 PG (27-31); MCHC 32.3 g/dL (33-37); MPV 9.8 FL (7.4-10.4); RBC 2.36 XMIL (4.7-6.1); RDW 16.1 % (11.5-14.5); WBC 4.24 X1000 (4.8-10.8)
[2019-03-23 05:25] LABS: INR 1.5; PROTIME 18.4 Seconds (11.0-16.0)
[2019-03-23] MEDS ORDERED: NS 500 ML IV ONE (05:35)
[2019-03-23] MEDS: PRILOSEC PO SCH ×2 (05:45→06:29)
[2019-03-23 05:54] LABS: ALBUMIN 3.1 g/dL (3.5-5.0); CALCIUM 7.8 mg/dL (8.8-10.2); CREATININE 2.4 mg/dL (0.7-1.2); PHOSPHORUS 2.9 mg/dL (2.7-4.5); POTASSIUM 4.2 mmol/L (3.5-5.1)
[2019-03-23] MEDS: HUMULIN R SUBQ SCH ×2 (06:13→13:02)
[2019-03-23] MEDS: MIRALAX PO SCH (09:19)
[2019-03-23] MEDS: LIPITOR PO SCH (09:19)
[2019-03-23] MEDS: LOPRESSOR PO SCH (09:20)
[2019-03-23] MEDS: CARDIZEM CD PO SCH (09:20)
[2019-03-23] MEDS: FISH OIL CONCENTRATE PO SCH (09:20)
[2019-03-23] MEDS: ZOLOFT PO SCH (09:20)
[2019-03-23] MEDS: CORDARONE PO SCH (09:20)
[2019-03-23 11:05] LABS: HEMATOCRIT 24.7 % (42.0-52.0)
[2019-03-23 11:24] VITALS: BP 132/64
[2019-03-23] MEDS ORDERED: PNEUMOVAX 23 IM ONE (12:04)
--- NOTE | 2019-03-23 21:13 | NEPHROLOGY PROGRESS NOTE ---
DATE: 03/23/2019 SUBJECTIVE: Mr. Green is resting in bed. States that he is feeling a little bit better today. Thinks that the bleeding on his right dialysis tunnel catheter to the right chest wall is improved. OBJECTIVE: Vital Signs: Temperature 98.3 degrees, blood pressure 130/51, heart rate 75, respirations 20. He is on room air. Last recorded saturation 95%. He has had 720 in, 2199 out with 1 L on dialysis, the rest to void. LABORATORY DATA: Sodium 130, potassium 4.2, chloride 96, CO2 25, BUN 22, creatinine 2.4, glucose 126. His anion gap is 9, calcium 7.8, phosphorus 2.9, albumin 3.1. Previous hemoglobin 8 with hematocrit of 24.7 after 1 unit of packed red blood cells. PHYSICAL EXAMINATION: General: This is a 73-year-old white male who is currently resting quietly in bed. Skin: Warm and dry. HEENT: Normocephalic, atraumatic. Conjunctivae pale. He has MAYTE. Mucous membranes are dry. Neck: Supple. Trachea midline. No evidence of JVD. Cardiovascular: Regular rate and rhythm. He is without murmur or gallop. Lungs: Clear to auscultation bilaterally. Equal excursion on room air. Abdomen: Soft, nontender. Positive bowel sounds. Genitourinary: Not inspected. Patient has been voiding adequate amount with dialysis assist. Extremities: Have no edema. No clubbing or cyanosis. Integumentary: The patient has a dialysis tunneled catheter to the right chest wall. He has a pressure dressing currently intact going around his chest. Old dried blood present upon inspection of site. Neurological: Alert and oriented x3. ASSESSMENT AND PLAN: 1. Chronic kidney disease stage 5D. The patient is to start outpatient hemodialysis upon discharge. His dialysis tunnel catheter to the right chest wall is dry and intact. He is receiving 1 unit of packed red blood cells for drop of hemoglobin down to 7.4. It is now up to 8 after this unit has been infused. Plan for dialysis in the a.m. 2. Electrolytes acid-base balance and anemia. These all remained fairly stable. 3. Exit site bleeding to the tunnel dialysis catheter. Continue with conservative care followed by Dr. Kumar. I would to thank you for allowing us to follow with this patient. Dictated by ALFRED Delaneydish, MD [id number] encounter, data reviewed, discussed with Staci Hall on 03/23/19. I agree with the above assessment and plan of care. cc: ALFRED Delaney MD [facility]
--- NOTE | 2019-03-24 13:06 | DISCHARGE SUMMARY ---
ADMISSION DATE: 03/17/2019 DISCHARGE DATE: 03/23/2019 DISPOSITION: Home. FOLLOW-UP: 1. Dr. Hair Leigh. 2. Dr. Antonio. CONSULTATION DURING THIS ADMISSION: 1. Nephrology was consulted, patient was seen by Dr. Antonio. 2. Surgery was also consulted, patient was seen by Dr. Kumar. INVASIVE PROCEDURES DONE DURING THIS ADMISSION: An initial Vas-Cath was put in the groin. Subsequently, a tunneled catheter was dropped into the right internal jugular vein. IMAGING STUDIES OF SIGNIFICANCE: 1. A chest x-ray shows stable, no definite acute pathology. 2. A repeat chest x-ray on the was stable. ADMISSION DIAGNOSES: 1. End-stage renal disease. 2. Diastolic heart failure. 3. Diabetes mellitus. 4. Obstructive sleep apnea. DISCHARGE DIAGNOSIS: 1. Generalized weakness secondary to uremia from end-stage renal disease. 2. Chronic kidney disease stage 5, needing dialysis. 3. Hyperkalemia on presentation, resolved with dialysis. 4. Paroxysmal atrial fibrillation. 5. Diabetes mellitus on insulin regimen. 6. Exit site bleeding at the level of the dialysis tunneled catheter. This resolved. 7. Normocytic anemia. Hemoglobin and hematocrit dropped to about 7.4. The patient was given 1 unit of PRBC. DISCHARGE MEDICATIONS: 1. [place]-3 fatty acids. 2. Furosemide 40 mg p.o. daily. 3. Omeprazole 40 mg p.o. daily. 4. Atorvastatin 20 mg p.o. daily. 5. Pioglitazone 50 mg p.o. daily. 6. Metoprolol 25 mg b.i.d. 7. Janumet 1 tab daily. 8. Melatonin 8 mg p.o. p.r.n. 9. Diltiazem 120 p.o. daily. 10. Amiodarone 200 mg p.o. daily. 11. Zolpidem 5 mg p.o. at bedtime. 12. Spironolactone 50 mg p.o. daily. 13. Sertraline 50 mg p.o. daily. 14. Coumadin 2.5 p.o. daily. PRESENTING COMPLAIN: Weak and falling. HISTORY OF PRESENT COMPLAINT: Mr. Green is a 73-year-old male who is known to have diabetes mellitus, some diastolic heart failure, pulmonary hypertension, hypertension and atrial fibrillation, came to the emergency department because of generalized weakness and falling. The patient did know he had some renal disease and that he needed to be on dialysis. Upon presenting to the emergency department, he was evaluated and was found to have a potassium level of 7.9 with BUN of 74, creatinine was 4.8. He was subsequently admitted for further medical care. HOSPITAL COURSE: Mr. Green was admitted to the medical floor under telemonitoring. He was aggressively treated medically for the hypokalemia. However, it did not resolved, so Nephrology was consulted and a decision was made to start dialysis. Surgery was also consulted. An initial Vas-Cath was done and dialysis resumed. Subsequently Mr. Green started feeling better. A tunneled catheter was ultimately placed in the right jugular vein, however a day after, there was bleeding around the exit site which needed tight compression. Overnight, his H H was trended. It had dropped to about 7.4, which was about 3 g difference from the H H on admission, so we gave him a unit of blood. Today, he feels a lot better. He feels stronger. The bleeding is stopped. His electrolytes and acid base are all at target, so we think he is stable for discharge. He is going to be following up by Dr. Antonio on an outpatient basis. Mr. Green is also advised to be compliant with his medications. Because of the exit bleed, we will advise that he follows up with his primary care doctor and have his INR repeated before he starts back on his Coumadin. All of the discharge instructions were discussed with him. The was at the bedside at the time of the encounter. Both of them voiced understanding. Time spent for discharge is 36 minutes. cc: MD Hair Buchanan MD Reginald D. Gladish, MD
== END 2019-03-23 14:11 | disposition home or self-care (01) | DRG 291 ==
LOC: ED 11:26 → ICU 15:50 → SUATTDRO 15:50 → 1N 03-19 13:01
PROVIDERS: ATTEND Internal Medicine

== ENCOUNTER 2019-10-17 20:50 | Inpatient (IN) ==
[2019-10-17 22:10] LABS: BASO# 0.04 X1000 (0.0-0.2); BASO% 0.5 % (0.0-0.8); EOS# 0.06 X1000 (0.0-0.7); EOS% 0.7 % (0.0-10.0); HEMATOCRIT 36.6 % (42.0-52.0); HEMOGLOBIN 11.7 g/dL (14.0-18.0); IMM GRAN% 1.2 % (0.0-0.5); LYMPH# 0.46 X1000 (1.2-3.4); LYMPH% 5.6 % (20.5-51.1); MCH 31.4 PG (27-31); MCV 98.1 FL (81-99); MONO# 0.61 X1000 (0.11-0.59); MONO% 7.5 % (1.7-9.3); MPV 9.9 FL (7.4-10.4); NEUT# 6.88 X1000 (1.4-6.5); NEUT% 84.5 % (42.2-75.2); PLT 206 X1000 (130-400); RBC 3.73 XMIL (4.7-6.1); WBC 8.15 X1000 (4.8-10.8)
[2019-10-17 22:18] LABS: INR 1.7; PROTIME 20.3 Seconds (11.0-16.0)
[2019-10-17 22:19] LABS: PTT 38.4 Seconds (22.3-41.8)
--- NOTE | 2019-10-17 22:26 | Diag Imaging Result Doc PS360 ---
EXAM: CHEST-1 VIEW HISTORY: preop TECHNIQUE: Single view COMPARISON: 04/10/2019 FINDINGS: The lungs are well expanded. The heart is mildly enlarged. There are faint bilateral infiltrates. No change in the right jugular line on the left pacemaker. No pleural effusions identified. IMPRESSION: Cardiomegaly with infiltrates/pulmonary edema. Electronically signed by Fran Martinez 10/17/2019 10:23 PM
--- NOTE | 2019-10-17 22:28 | Diag Imaging Result Doc PS360 ---
EXAM: XRAY PELVIS W/HIP 2-3VW LT HISTORY: fell TECHNIQUE: Four views COMPARISON: None. FINDINGS: There is an intertrochanteric fracture to the left hip. The femoral head remains within the acetabulum. The femoral shaft is rotated and superiorly placed. IMPRESSION: Intertrochanteric fracture to the left hip. Electronically signed by Fran Martinez 10/17/2019 10:25 PM
[2019-10-17 22:39] LABS: ALB/GLOB RATIO 1.1; ALBUMIN 3.8 g/dL (3.5-5.0); CALCIUM 8.8 mg/dL (8.8-10.2); CREATININE 4.1 mg/dL (0.7-1.2); POTASSIUM 5.9 mmol/L (3.5-5.1); TOTAL BILIRUBIN 0.77 mg/dL (0.20-1.00); TOTAL PROTEIN 7.2 g/dL (6.3-8.3)
--- NOTE | 2019-10-17 23:14 | PROVIDER DOCUMENTATION ---
This chart was entered by Kika Watkins Scribe, acting as scribe for Zaid Millan MD. HPI-Musculoskeletal Pain/Inj - GENERAL Chief Complaint: Fall Stated Complaint: fall Time Seen by Provider: 10/17/19 21:13 Source: patient - HX OF PRESENT ILLNESS-MUSKULOSKELTAL Nature of Presenting Problem: 73 yowm presents to the ed with c/o LLE and hip pain. phe reports he was taking the garbage out when he begin to feel "a little dizzy", pt then fell from standing outside. pt denies LOC or head injury with fall and olny complaint is left hip and leg. when ems aos pt was lying outside on his rt side unable to get himself up. pt has deformity of hip and LLE is shortened and externally rotated Quality of Pain: reports: aching Severity in ED: moderate (with movmeent only) Onset/Duration: just prior to arrival Timing: still present, intermittent Modifying Factors: improves with: immobilization. worse with: movement, palpation Any recent injury?: Yes Locality of Occurance: Home Similar Symptoms Previously?: Yes (falls in the past) Recently seen or treated by another doctor?: No - FALL INJURY Location of Pain/Injury: reports: other (hip) Pain Radiation: reports: legs (upper) Reason for Fall: reports: lightheaded Symptoms prior to fall:: reports: none Loss of Consciousness: no loss of consciousness Injury Associated Symptoms: reports: joint pain, snap/crack/pop sensation, unable to bear weight, trouble walking. denies: back/neck pain, chest pain, nausea, shortness of breath, vomiting - HIP/PELVIS PAIN/INJURY Hip Pain Location: reports: hip (L) Pain Radiation: reports: lower legs Context / Method of Injury: reports: fall Associated Symptoms: reports: denies symptoms Review of Systems - Adult - REVIEW OF SYSTEMS - ADULT Constitutional: denies: chills, fever Eyes: reports: no symptoms reported Ears, Nose, Mouth & Throat: reports: no symptoms reported Cardiovascular: denies: chest pain, palpitations Respiratory: denies: cough, shortness of breath, wheezing Gastrointestinal: denies: diarrhea, nausea, vomiting Genitourinary: reports: no symptoms reported Musculoskeletal: reports: see HPI, bone pain, joint pain. denies: back pain, neck pain Integumentary: reports: no symptoms reported Neurological: denies: dizziness/vertigo, headache/migraines, syncope Psychiatric: reports: no symptoms reported Endocrine: reports: no symptoms reported Hematologic/Lymphatic: reports: no symptoms reported Allergic/Immunologic: reports: no symptoms reported All Other Systems: Reviewed and Negative Past History - Adult - PAST MEDICAL HISTORY-ADULT Review of Records: reports: Old Records Reviewed, Nursing Assessment Review, Medications Reviewed, Social history reviewed & non-contributory. Major Childhood Illnesses: reports: denies history Cardiovascular: reports: A-Fib, CHF, HTN, hyperlipidemia, pacemaker Respiratory: reports: COPD Gastrointestinal: reports: GERD Genitourinary: reports: dialysis, ESRD, kidney disease Musculoskeletal: reports: denies history Neurological: reports: denies history Psychiatric: reports: denies history Endocrine/Immune: reports: Diabetes Diabetes Type: Type 2 Other Conditions: reports: other cancer (skin) - PRIOR SURGERIES/PROCEDURES Surgical/Procedure History: reports: pacemaker, indwelling device (dialysis fistula), tonsillectomy, orthopedic (extremity), joint replacement (total knee), other (dialysis fistula) - IMMUNIZATION STATUS Childhood Immunizations: See Nurse Assessment Flu Vaccine: See Nurse Assessment - FAMILY HISTORY Family History: reviewed, not pertinent - SOCIAL HISTORY Smoking: denies Substance Use: alcohol Alcohol Use Frequency: occasionally Number of drinks per typical drinking period:: 2 drinks Living Situation: family Physical Exam-Injury Related - Physical Exam-Injury Related Initial Vital Signs Reviewed: Yes General Appearance: alert, mild distress, obese Eyes: PERRL/EOMI, pink conjunctivae Head, Ears, Nose, Mouth & Throat: negative: other (deferred OP exam pt has mask on NO resp/cough issues) Neck: non-tender, full range of motion, normal inspection Respiratory: chest non-tender, lungs clear, normal breath sounds Cardiovascular: normal peripheral pulses, regular rate, rhythm Chest/Breast: deferred Abdominal Exam: normal bowel sounds, non tender, soft Male Genitalia: deferred Rectal Exam: deferred Hemoccult Exam: deferred Back Exam: no CVA tenderness, no vertebral tenderness Extremity: normal capillary refill, deformity (left hip pain and LLE is shortened and externally rotated), tenderness (rt hip), other (left arm dialysis fistula). negative: normal range of motion, normal gait, normal inspection Integumentary: normal color, warm/dry Neurologic: grossly normal Psych/Mental Status: normal mood/affect, normal thought content, normal thought process, oriented x 3 - Glascow Coma Score Best Eye Response ([place]anna): (4) open spontaneously Best Verbal Response ([place]): (5) oriented Best Motor Response ([place]): (6) obeys commands Arianna Total: 15 Progress - PLAN OF CARE/RESULTS Progress/Plan/Lab Results: Vital Signs - 8 hr 10/17/19 21:08 10/17/19 22:08 Temperature 97.6 F Pulse Rate 60 60 Respiratory Rate 18 18 Blood Pressure 134/62 134/66 O2 Sat by Pulse Oximetry 93 L 97 Laboratory Results - last 24 hr 10/17/19 10/17/19 10/17/19 21:15 21:15 21:15 WBC 8.15 RBC 3.73 L Hgb 11.7 L Hct 36.6 L MCV 98.1 MCH 31.4 H MCHC 32.0 L RDW Std Deviation 16.0 H Plt Count 206 MPV 9.9 Immature Gran % (Auto) 1.2 H Neut % (Auto) 84.5 H Lymph % (Auto) 5.6 L [place] % (Auto) 7.5 Eos % (Auto) 0.7 Baso % (Auto) 0.5 Immature Gran # (Auto) 0.10 H Neut # (Auto) 6.88 H Lymph # (Auto) 0.46 L [place] # (Auto) 0.61 H Eos # (Auto) 0.06 Baso # (Auto) 0.04 PT 20.3 H INR 1.70 PTT (Actin FS) 38.4 Sodium 131 L Potassium 5.9 H Chloride 93 L Carbon Dioxide 21 L Anion Gap 17 BUN 58 H Creatinine 4.1 H Estimated GFR/1.73 m2 14 BUN/Creatinine Ratio 14 Glucose 182 H Calculated Osmolality 283 Calcium 8.8 Total Bilirubin 0.77 AST 101 H ALT 131 H Alkaline Phosphatase 118 Total Protein 7.2 Albumin 3.8 Globulin 3.4 Albumin/Globulin Ratio 1.1 Orders Category Date Time Status Admit - [facility] Routine AdmDCTranf 10/17/19 22:43 Active Nursing- MD Consult Request ROUTINE Care 10/17/19 22:46 Active Nursing- MD Consult Request ROUTINE Care 10/17/19 22:48 Active SCD/TICO Application [Apply Mechanical Device] [QM] Care 10/17/19 22:46 Active ORDERED Saline Loc NOW Care 10/17/19 22:45 Active Vital Signs Order Q 4-HR ASSESS Care 10/17/19 22:44 Active Physician/Provider Consults Routine Cons 10/17/19 22:45 Ordered Physician/Provider Consults Routine Cons 10/17/19 22:48 Ordered NPO Diet 10/17/19 22:45 Active CHEST-1 VIEW [RAD] Stat Exams 10/17/19 21:39 Completed XRAY PELVIS W/HIP 2-3VW LT [RAD] Stat Exams 10/17/19 21:39 Completed CBC WITH DIFF [HEME] Stat Lab 10/17/19 21:15 Completed COMPREHENSIVE METABOLIC PANEL [CHEM] Stat Lab 10/17/19 21:15 Completed PROTIME WITH INR [COAG] Stat Lab 10/17/19 21:15 Completed PTT [COAG] Stat Lab 10/17/19 21:15 Completed URINALYSIS W/POSS RFLX CULT [URINALYSIS] Stat Lab 10/17/19 21:39 Uncollected EKG [EKG] Stat Ther 10/17/19 21:39 Ordered Transfer/Admit Order [TRANSFER] Routine Transfer 10/17/19 22:43 Ordered Result Diagrams: 10/17/19 21:15 10/17/19 21:15 - EKG 1 Time of EKG reading by physician:: 22:58 EKG Read and Signed by:: Ziad Millan Rate: 60 Rhythm: paced [place]: left QRS: RBB (partial), other (prolonged QT) - XRAY 1 XRAY: Left XRAY Study: Hip Impression: See EMR Report (FINDINGS: There is an intertrochanteric fracture to the left hip. The femoral head remains within the acetabulum. The femoral shaft is rotated and superiorly placed. IMPRESSION: Intertrochanteric fracture to the left hip. Electronically signed by Fran Martinez 10/17/2019 10:25 PM) 2 XRAY: Bilateral XRAY Study: Chest Impression: See EMR Report (FINDINGS: The lungs are well expanded. The heart is mildly enlarged. There are faint bilateral infiltrates. No change in the right jugular line on the left pacemaker. No pleural effusions identified. IMPRESSION: Cardiomegaly with infiltrates/pulmonary edema. Electronically signed by Fran Martinez 10/17/2019 10:23 PM) - CONSULTS/PCP/HOSPITALIST Notification #1 *Consult/PCP/Hospitalist*: hospitalist Time Discussed: 22:13 (left hip fx) Consult Disposition: Will see in ED, Admit Departure - Departure Date of Disposition Decision: 10/17/19 Time of Disposition Decision: 22:15 DIAGNOSIS: Paroxysmal atrial fibrillation Closed intertrochanteric fracture of left hip Qualifiers: Encounter type: initial encounter Fracture alignment: nondisplaced Qualified Co de(s): S72.145A - Nondisplaced intertrochanteric fracture of left femur, initial encounter for closed fracture Chronic renal failure Qualifiers: Chronic kidney disease stage: stage 5 Qualified Code(s): N18.5 - Chronic kidney disease, stage 5 Disposition: ADMITTED INPATIENT 09 Certified Medical Emergency: Emergent Condition: Good - Critical Care Note This patient required my direct & personal management of CC.: No Attestation - Physician/ SUSAN Attestation Patient care was provided by Advanced Practice Provider:: No The physician spent face to face time with patient:: Yes Advanced Practice Provider documentation review:: Supervising physician onsite and consulted in the evaluation and care of this patient. The physician did have a face to face encounter with the patient. This chart was documented by the indicated scribe, (Kika Watkins Scribe) a nd accurately reflects the services I performed and decisions made by me, Zaid Millan MD, as attested by the provider's signature.
--- NOTE | 2019-10-17 23:29 | EKG Report ---
Test Performed on : 10/17/2019 10:56:46 PM Test Reason : preop Blood Pressure : / mmHG Vent. Rate : 060 BPM Atrial Rate : 060 BPM P-R Int : 220 ms QRS Dur : 118 ms QT Int : 484 ms P-R-T Axes : 035 -40 036 degrees QTc Int : 484 ms Atrial-paced rhythm with prolonged AV conduction Left axis deviation Incomplete right bundle branch block Prolonged QT Abnormal ECG When compared with ECG of 18-MAR-2019 07:17, Electronic atrial pacemaker has replaced Sinus rhythm. Unconfirmed Result
[2019-10-17] MEDS ORDERED: NORCO-10 PO PRN (23:58)
[2019-10-18] MEDS ORDERED: DUONEB (A & A) INH PRN (06:53)
[2019-10-18] MEDS ORDERED: NS 2,000 ML MISC PRN (07:05)
--- NOTE | 2019-10-18 07:13 | HISTORY AND PHYSICAL ---
HISTORY OF PRESENT ILLNESS: The patient is a 73-year-old male who has a history of multiple medical problems including end-stage renal disease, diabetes mellitus, atrial fibrillation, hypertension, congestive heart failure, COPD, and pacemaker implantation. The patient sustained a fall prior to presenting to the hospital. The patient subsequently presented to the ER. He had an x-ray of his hip as well as pelvis which showed evidence of intertrochanteric fracture involving the left hip. The patient does have slight pain in the hip region. He has now been admitted to the floor for repair of the hip fracture. PAST MEDICAL HISTORY: Paroxysmal atrial fibrillation, history of skin cancer, congestive heart failure, COPD, type 2 diabetes mellitus, hyperlipidemia, hypertension, obstructive sleep apnea, atrial fibrillation, gastroesophageal reflux disease. PAST SURGICAL HISTORY: Includes total knee replacement on the right side, tonsillectomy, right ear surgery, right ankle surgery. SOCIAL HISTORY: No history of cigarette smoking, alcohol, or drug use. ALLERGIES: No known drug allergies. FAMILY HISTORY: Positive for hypertension as well as cancer. MEDICATIONS: His medications include the following: Amiodarone 200 mg daily, atorvastatin 20 mg p.o. once a day, diltiazem 120 mg p.o. daily, Lasix 40 mg p.o. daily, hydrocodone/acetaminophen 10 mg q.6 hours p.r.n., metoprolol 25 mg p.o. twice a day, [place] 3 fatty acid 2 g daily, omeprazole 40 mg p.o. daily, sertraline 50 mg p.o. daily, spironolactone 50 mg p.o. once a day. REVIEW OF SYSTEMS: Constitutional: No fever. FLOORS BUFFER: No headaches. Eyes: The patient uses glasses. ENT: Has hearing loss. Cardiovascular System: No chest pain. Respiratory: Has some cough. GI: He has some nausea, vomiting, and diarrhea. No abdominal pains. Endocrinology: Patient does have diabetes. Hematology: The patient bleeds easily. Dermatology: The patient does have a history of skin cancer. PHYSICAL EXAMINATION: VITAL SIGNS: Temperature is 97.6 degrees, pulse is 60, respirations 18, blood pressure 134/62, oxygen saturation is 93%. HEENT: Patient is atraumatic, normocephalic. He is anicteric. No oral lesions noted. NECK: No lymphadenopathy or thyromegaly. CARDIOVASCULAR SYSTEM: S1, S2. RESPIRATORY SYSTEM: Has evidence of good air entry bilaterally. ABDOMEN: Soft, nontender. No masses felt. EXTREMITIES: No evidence of significant edema. CENTRAL NERVOUS SYSTEM: No obvious focal deficits noted. LABORATORY DATA: WBCs 8.15, hematocrit is 36.6, with a platelet count of 206,000. INR is 1.7. Sodium is 131, potassium is 5.9, chloride is 93, bicarb is 21, BUN is 50, creatinine is 4.1. AST 101, ALT 131. Chest x-ray shows cardiomegaly with infiltrates/pulmonary edema. EKG shows atrial paced rhythm with prolonged AV conduction, left axis deviation, incomplete right bundle-branch block. X-ray of the pelvis/left hip shows evidence of an intertrochanteric fracture involving the left hip. ASSESSMENT AND PLAN: 1. Left hip intertrochanteric fracture. Consult with orthopedics for repair of the fracture. Optimize pain control. 2. End-stage renal disease with hyperkalemia. Consult with nephrology for hemodialysis. 3. Diabetes mellitus. Maintain patient on sliding scale insulin. Monitor blood sugar levels. Check hemoglobin A1c level. 4. Atrial fibrillation. Continue antiarrhythmic (amiodarone) as well as rate controlling agent. Heart rate is controlled. 5. Hypertension. Optimize blood pressure control. 6. Congestive heart failure. Stable. 7. Chronic obstructive pulmonary disease. Nebulized bronchodilators as needed. 8. Gastroesophageal reflux disease. Maintain patient on proton pump inhibitor. 9. Hyperlipidemia. Continue lipid-lowering agent. 10. Abnormal liver function tests. Check hepatitis panel as well as abdominal ultrasound. 11. Deep vein thrombosis prophylaxis. Sequential compression devices. 12. Gastrointestinal prophylaxis. Proton pump inhibitor. cc: Bharat Plata MD
--- NOTE | 2019-10-18 07:44 | ORTHOPAEDICS CONSULTATION ---
DATE: 10/18/2019 HISTORY OF PRESENT ILLNESS: Mr. Green is a 73-year-old male who fell yesterday while going back to his garage. He had just taken his trash cans out to the road. He said he got a little bit dizzy and was unable to make it back and he fell injuring the left hip. He denies pain anywhere else. PAST MEDICAL HISTORY: Atrial fibrillation, congestive heart failure, COPD, type 2 diabetes, end- stage renal disease on dialysis, reflux, hypertension. PAST SURGICAL HISTORY: Right total knee replacement, tonsillectomy. SOCIAL HISTORY: He denies alcohol or tobacco use. ALLERGIES: No known drug allergies. FAMILY HISTORY: Positive for heart-related issues, as well as some cancer. MEDICATIONS: Per the medical record. REVIEW OF SYSTEMS: Positive for left hip pain. All other systems are essentially negative. PHYSICAL EXAMINATION: General: Elderly-appearing adult male, lying in bed. He is in no acute distress this morning. HEENT and Neck: Head and neck appear normocephalic, atraumatic. Respirations: Nonlabored breathing. Cardiovascular: Regular pulse. Abdomen: Nondistended. Extremities: Left lower extremity exam, he is able to move his toes up and down. He has good sensation to light touch to the toes. He has good capillary refill to the toes. No tenderness to palpation at the knee. He does have tenderness to palpation at the left hip. No tenderness to palpation to the right lower extremity or bilateral upper extremities. RADIOGRAPHS: Several views of the left hip show intertrochanteric hip fracture with some displacement. ASSESSMENT: Left intertrochanteric hip fracture. PLAN: I discussed with Mr. Green about his hip fracture. This will need surgical intervention to stabilize it. I went over with him about left trochanteric femoral nailing. We went over the procedure, risks, benefits, potential complications. Risks include, but are not limited to, infection, wound healing problems, damage to nerves, arteries, veins, numbness, malunion, nonunion, hardware related issues, continued pain, DVT, and anesthesia-related risks. After discussing these with the patient, he expressed understanding and wished to proceed. He is n.p.o. today. He is supposed to get dialysis this morning. We will plan on doing his surgery this afternoon. He will remain n.p.o. cc: Lj Ma MD
[2019-10-18] MEDS: DUONEB (A & A) INH SCH ×5 (07:49→23:00)
[2019-10-18 07:54] LABS: URINE SOURCE CLEAN CATCH
[2019-10-18 07:59] LABS: BILIRUBIN URINE NEGATIVE (NEGATIVE); BLOOD URINE NEGATIVE (NEGATIVE); COLOR YELLOW; GLUCOSE URINE NEGATIVE (NEGATIVE); KETONE URINE NEGATIVE (NEGATIVE); LEUKOCYTES URINE NEGATIVE (NEGATIVE); NITRITE URINE NEGATIVE (NEGATIVE); PROTEIN URINE 30 mg/dL (NEGATIVE); SP GRAVITY URINE 1.017; TURBIDITY URINE CLEAR (CLEAR); UR EPITHELIAL CELLS <10 /HPF (<10); URINE BACTERIA 1+ /HPF; URINE RBC <10 /HPF (<10); URINE WBC <10 /HPF (<10); UROBILINOGEN URINE 2 mg/dL (NORMAL)
[2019-10-18] MEDS: HUMALOG SUBQ SCH ×4 (08:37→21:58)
[2019-10-18] MEDS: PRILOSEC PO SCH (08:38)
--- NOTE | 2019-10-18 10:10 | NEPHROLOGY CONSULTATION ---
DATE: 10/18/2019 REASON FOR CONSULTATION: ESRD. CONSULTING PHYSICIAN: Bharat Plata MD. HISTORY OF PRESENT ILLNESS: Mr. Green is a 73-year-old white male with a history of diabetes, hypertension, congestive heart failure, pacemaker. He has also COPD. He has been on dialysis less than 1 year. He states that he was in his usual state of good health until yesterday. He took the trash can to the street. On his way back, he began having urge to defecate and dizziness. He did not lose consciousness but he did fall and had immediate pain in the left hip as well as the left arm. He did not have chest pain or palpitations throughout this, no diaphoresis. He was brought to the emergency room where x-rays demonstrated intertrochanteric fracture of left hip. At this time, his pain is controlled. He is awake, alert and has no other symptoms. PAST MEDICAL HISTORY: As above. HOME MEDICATIONS: Include multivitamin, furosemide, omeprazole, atorvastatin, metoprolol, amiodarone, spironolactone, sertraline, diltiazem, hydrocodone. ALLERGIES: None. SOCIAL HISTORY: He is and lives with his . No alcohol or tobacco. FAMILY HISTORY AND REVIEW OF SYSTEMS: Noncontributory. PHYSICAL EXAMINATION: Vital Signs: Blood pressure 128/60, heart rate 60, respiration 14, afebrile. General: He is an elderly man on dialysis currently lying flat in bed, no acute distress. On nasal cannula oxygen. Skin: Warm and dry. No rashes or other lesions. HEENT: Conjunctivae are pink and moist. Pupils are equal and round. Oropharynx is moist. Tongue is normal. Teeth normal. Neck: Supple. Trachea is midline. Neck vein distention is not present. Heart: PMI is nondisplaced and normal in size. Cardiovascular: Heart is regular. No murmurs, rubs, or gallops. Pacemaker in left chest. Lungs: Have equal excursion, equal breath sounds. No crackles or wheezes. No accessory muscle use or retractions. Abdomen: Soft, nontender, nondistended. Normal bowel sounds. No organomegaly or masses, etc. Extremities: No edema, clubbing, or cyanosis. Neurologic Exam: Grossly nonfocal. IMPRESSION: 1. Chronic kidney disease 5D. He is on dialysis currently using a 2K bath and his outpatient dry weight. We are holding heparin in anticipation of surgery, 37 bicarbonate. 2. Left hip fracture. He last had a cardiac evaluation in April 2018 at which time he had a negative Lexiscan. He has also undergone transesophageal echocardiogram with only minor valvular abnormalities. I have no opposition to him undergoing surgery today. 3. Hypertension in target. 4. Electrolytes. Moderate hyperkalemia and hyponatremia that will be addressed with dialysis. 5. Acid base in target. 6. Anemia in target. 7. Blood pressure in target. cc: Reji Antonio MD
[2019-10-18 10:26] LABS: CALCIUM 8.5 mg/dL (8.8-10.2); PHOSPHORUS 4.5 mg/dL (2.7-4.5)
[2019-10-18] MEDS ORDERED: KEFZOL 2 GM/D5W 2 GM/50 ML IVPB IV ONE (12:26)
[2019-10-18] MEDS: LOPRESSOR PO SCH ×2 (12:52→21:59)
[2019-10-18] MEDS: FISH OIL CONCENTRATE PO SCH (12:52)
[2019-10-18] MEDS: PATIENT'S OWN MED PO SCH (12:52)
[2019-10-18] MEDS: ALDACTONE PO SCH (14:39)
[2019-10-18] MEDS: CORDARONE PO SCH (14:40)
[2019-10-18] MEDS: ZOLOFT PO SCH (14:40)
[2019-10-18] MEDS: LASIX PO SCH (14:40)
[2019-10-18] MEDS: CARDIZEM CD PO SCH (14:40)
--- NOTE | 2019-10-18 15:34 | Diag Imaging Result Doc PS360 ---
EXAM: US ABDOMEN-COMPLETE 10/18/2019 HISTORY: abn LFTs TECHNIQUE: Abdominal ultrasound COMMENT: There is antegrade flow in the portal vein. The liver is normal in appearance and the gallbladder is clear and nontender. The head and body the pancreas are within normal limits. The remainder is obscured. The kidneys are without evidence of hydronephrosis or mass. The common bile duct measures less than 3 mm. The spleen is slightly enlarged measuring over 13.6 cm. The visualized portions of the aorta and inferior vena cava are within normal limits. IMPRESSION: Borderline splenomegaly. Electronically signed by Zhang Gonzalez 10/18/2019 3:32 PM
[2019-10-18] MEDS ORDERED: AMIDATE ONE (16:01)
[2019-10-18] MEDS ORDERED: QUELICIN (DOSE) ONE (16:19)
[2019-10-18] MEDS ORDERED: XYLOCAINE-MPF 2% ONE (16:19)
[2019-10-18 16:33] LABS: CALCIUM 8.8 mg/dL (8.8-10.2); CREATININE 2.5 mg/dL (0.7-1.2); POTASSIUM 4.6 mmol/L (3.5-5.1)
[2019-10-18] MEDS ORDERED: ZOFRAN ONE (16:34)
[2019-10-18] MEDS ORDERED: OFIRMEV 1000 MG/ISOTONIC SOLN 1,000 MG/100 ML BOTTLE ONE (16:36)
[2019-10-18] MEDS ORDERED: EPHEDRINE ONE (17:07)
[2019-10-18] MEDS ORDERED: ZOFRAN IV PRN (17:16)
[2019-10-18] MEDS ORDERED: OXY IR PO PRN (17:16)
[2019-10-18] MEDS ORDERED: SALINE LOCK IV FLUID XX ONE (17:16)
[2019-10-18] MEDS ORDERED: MORPHINE IV PRN (17:16)
--- NOTE | 2019-10-18 17:55 | OPERATIVE NOTE ---
PROCEDURE DATE: 10/18/2019 PREOPERATIVE DIAGNOSIS: Left intertrochanteric hip fracture. POSTOPERATIVE DIAGNOSIS: Left intertrochanteric hip fracture. PROCEDURE: Left trochanteric femoral nailing. SURGEON: Dr. Lj Ma. SEXER: ALFRED Mtoa, who was an integral part of the case, helping with all aspects of the case, helping increase our OR efficiency greatly. ANESTHESIA: General with LMA. ESTIMATED BLOOD LOSS: About 50 mL. IMPLANTS: Synthes trochanteric femoral nail 11 x 380. Helical blade 100 mm. DISPOSITION: To PACU, hemodynamically stable. INDICATION FOR PROCEDURE: Mr. Green is a 73-year-old male who fell yesterday while coming back from walking his garbage out to the road. He was admitted per the hospitalist service. He got dialysis this morning. I discussed with him about operative intervention. He expressed understanding and wished to proceed. DESCRIPTION OF THE PROCEDURE: Mr. Green was identified in the holding area. The left hip was marked as the correct surgical site. He was then wheeled to the operating room and placed supine on the operating table. All bony prominences were well padded. He was induced under general anesthesia. LMA was placed. He was then placed in traction boots, then attached to the [place] table. A little bit of traction was placed on that left lower extremity. Left lower extremity then prepped with Betadine solution, and then that was wiped off and then ChloraPrepped and draped in a normal sterile fashion. Surgical pause was performed. We identified the correct patient, correct side, and the correct procedure. Preoperative antibiotics were given. We started with an incision just proximal to the greater trochanter. Dissection was carried down through the deep fascia. I got my starting position with my guidewire. I got it into position and confirmed that on the AP and lateral views. I then drilled that opening drill and then got my a ball-tip guidewire down. Measured a 380 nail. I then sequentially reamed up to a size 12 reamer. I then passed an 11 x 380 trochanteric femoral nail down. I then made an incision on the lateral aspect of the mid thigh. I advanced the guidewire up center and center into the femoral head. He was retroverted just a little bit so I was able to get that neck angle reduced down and got center-center in the head with my helical blade. I passed the helical blade up and then locked it to the nail. I then removed the outrigger guide. Final images were taken which showed that we had a really good reduction of the fracture. The lateral wall was completely intact. We had a good fit midshaft as well. So we elected not to put any distal interlocking screws in. We then irrigated everything copiously with normal saline. 0 Vicryl was used to close the deep layer, 2-0 Vicryl for the subcutaneous and hermilo on the skin. [place] dressings were applied. He was then taken out of traction. He was moved to his own bed and taken to PACU in stable condition. PLAN: Postoperatively, he will be weight bear as tolerated, left lower extremity. I will check on him in the morning. cc: Lj Ma MD
[2019-10-18] MEDS ORDERED: OXY IR ONE (18:03)
[2019-10-18] MEDS: PERIDEX MT SCH (21:57)
[2019-10-18] MEDS: LIPITOR PO SCH (21:58)
[2019-10-19] MEDS: KEFZOL 1 GM/D5W 1 GM/50 ML IVPB IV SCH ×3 (01:14→16:44)
[2019-10-19] MEDS: DUONEB (A & A) INH SCH ×6 (03:28→22:34)
[2019-10-19] MEDS: PRILOSEC PO SCH ×2 (05:49→06:49)
[2019-10-19] MEDS: HUMALOG SUBQ SCH ×3 (06:49→16:42)
[2019-10-19 07:29] LABS: HEMOGLOBIN A1C 5.8 % (4.8-6.0)
[2019-10-19 07:33] LABS: HEMATOCRIT 28.3 % (42.0-52.0); HEMOGLOBIN 8.9 g/dL (14.0-18.0); MCH 31.6 PG (27-31); MCHC 31.4 g/dL (33-37); MCV 100.4 FL (81-99); RBC 2.82 XMIL (4.7-6.1); WBC 8.55 X1000 (4.8-10.8)
[2019-10-19 07:37] LABS: ALB/GLOB RATIO 1.5; ALBUMIN 3.5 g/dL (3.5-5.0); CALCIUM 8.5 mg/dL (8.8-10.2); CREATININE 3.4 mg/dL (0.7-1.2); MAGNESIUM 1.9 mg/dL (1.5-2.7); PHOSPHORUS 4.8 mg/dL (2.7-4.5); POTASSIUM 5.2 mmol/L (3.5-5.1); TOTAL BILIRUBIN 0.86 mg/dL (0.20-1.00); TOTAL PROTEIN 5.9 g/dL (6.3-8.3)
[2019-10-19] MEDS: FISH OIL CONCENTRATE PO SCH (08:51)
[2019-10-19] MEDS: CORDARONE PO SCH (08:51)
[2019-10-19] MEDS: CARDIZEM CD PO SCH (08:51)
[2019-10-19] MEDS: ALDACTONE PO SCH (08:51)
[2019-10-19] MEDS: ZOLOFT PO SCH (08:51)
[2019-10-19] MEDS: LOPRESSOR PO SCH (08:51)
[2019-10-19] MEDS: LASIX PO SCH (08:52)
[2019-10-19] MEDS: PERIDEX MT SCH (08:56)
[2019-10-19] MEDS: PATIENT'S OWN MED PO SCH (09:00)
[2019-10-19 09:18] LABS: HEMATOCRIT 26.4 % (42.0-52.0); HEMOGLOBIN 8.2 g/dL (14.0-18.0)
--- NOTE | 2019-10-19 12:35 | PROGRESS NOTE ---
DATE: 10/19/2019 SUBJECTIVE: This morning Mr. Green refers to be doing remarkably well. He underwent left trochanteric femoral nailing yesterday. He said this morning he tried to get up. He felt some pains, but he feels a whole lot better than yesterday. Mr. Green said that he went to check on the mail yesterday. On his way back, he started feeling generalized weakness and a sensation that he was going to pass out. Unfortunately, he did not sit down, and the legs could not move anymore and he fell sustaining injury to the left hip. He said he did not completely black out. OBJECTIVE: Vital signs: Blood pressure 105/42, pulse of 59, respirations 16, and temperature 97.7 degrees. Patient is saturating at 100%. General: Mr. Green also refers that every now and then he feels the same dizziness sensation whenever he stands up or whenever he bends over to orange picker something, which all gives the impression of either an orthostatic form of symptoms related or vasovagal. Mr. Green is a 73-year-old male. He is in bed in no distress. HEENT: Mucosa is pink and moist. Anicteric. Acyanotic. Neck: Supple. Chest: Clear to auscultation. No crepitations. No rhonchi. There is a tunnel dialysis catheter on the right anterior chest wall. The patient has also a fistula on the left arm. Cardiovascular: Regular rate and rhythm. No murmurs, no rubs, no gallops. GI: Abdomen is soft and nontender. Bowel sounds present. Extremities: No pedal edema. The left hip has sterile dressing over the surgical site. The lower extremities are neurovascularly intact. LABORATORY DATA: CBC shows microcytic anemia with hemoglobin of 8.2. His chemistry is consistent with renal failure. Vitamin D is low at 17.0. PTH is also remarkably high. The surgical report has also been reviewed. ASSESSMENT AND PLAN: 1. Presyncopal episode leading to mechanical fall. The patient sustained a trauma to the left hip. Subsequently, he developed left intertrochanteric hip fracture. He underwent left trochanteric femoral nailing yesterday. Today is day 1 postop. He refers to be feeling better, but still has some underlying pains. We will continue addressing his pain needs, and follow further recommendations from Orthopedics. 2. Endstage renal disease on hemodialysis Wednesday, Wednesday, and Wednesday. Nephrology has been consulted. 3. Diabetes mellitus controlled. 4. History of atrial fibrillation. Currently, rate controlled. Patient is on amiodarone. 5. Dyslipidemia. 6. Transaminitis of unclear etiology. We will get hepatitis panel. Ultrasound of the abdomen shows borderline splenomegaly. However, the liver seems to have normal appearance. 7. Recurrent episodes of dizziness/near syncopal attacks. Unsure if it is related to orthostasis. The patient had an EKG which only showed atrial paced rhythm. We will get an echocardiogram, get orthostatic vitals. Probably, get the pacemaker interrogated to make sure there is not any abnormal rhythm that is causing these symptoms. cc: Deacon Blackman MD
--- NOTE | 2019-10-19 19:10 | ECHO REPORT ---
ORDER DATE: 10/19/2019 INDICATION: Syncope, atrial fibrillation, COPD. M-MODE MEASUREMENTS: Left ventricle end diastole: 4.3. Left ventricle end systole: 3.0. Posterior wall: 1.0. Interventricular septum: 1.0. Left atrium: 4.9. Aortic diameter: 4.0. SUMMARY OF 2-DIMENSIONAL IMAGIN. Left ventricular function appears to be normal. Ejection fraction is estimated at 57%. There is no wall motion abnormality noted. 2. The left atrium is significantly enlarged. 3. The right-sided chambers also appear to be moderately enlarged. 4. The tricuspid valve shows a moderate to moderately severe degree of regurgitation. Pulmonary pressure is estimated at 85 to 90 mmHg. 5. The aortic valve shows sclerosis of the cusps. Color flow mapping indicates a moderate degree of regurgitation. 6. The mitral valve opens normally. There is calcification of the annulus. Color flow mapping indicates a moderate to moderately severe degree of regurgitation. 7. Pulse wave Doppler of mitral inflow shows "normal" E/A ratio. 8. Tissue Doppler of septal and lateral mitral annulus averages 8 cm. There is no definite diastolic dysfunction. 9. The pulmonic valve shows a mild degree of regurgitation. 10.There is no pericardial effusion. There is a pacemaker lead within the right-sided chambers. Clinical correlation recommended. cc: MD Deacon Chopra MD
--- NOTE | 2019-10-19 19:18 | NEPHROLOGY PROGRESS NOTE ---
DATE: 10/19/2019 SUBJECTIVE: He states he has been out of bed. Some pain obviously with transfer but tolerating it well. His p.o. intake has been low. OBJECTIVE: Vital Signs: Blood pressure 111/51, heart rate 64, respiration 18, afebrile. General: No acute distress. Skin: Warm and dry. Neck: Neck veins are not distended. Heart: Regular with an S4. No murmur. Lungs: Equal. No crackles or wheezes. Abdomen: Soft, nontender. Bowel sounds present. Extremities: No edema, clubbing or cyanosis. IMPRESSION: 1. Chronic kidney disease 5D. He will have his next routine dialysis tomorrow. 2. Mild hyponatremia and hyperkalemia. No intervention is required today. 3. Hemoglobin is 8.2. Still trending downward. Observe. Transfuse if continues to decline. cc: Reji Atnonio MD
[2019-10-20] MEDS: LOPRESSOR PO SCH ×3 (00:29→08:57)
[2019-10-20] MEDS: PERIDEX MT SCH ×2 (00:30→08:55)
[2019-10-20] MEDS: LIPITOR PO SCH (00:30)
[2019-10-20] MEDS: DUONEB (A & A) INH SCH ×6 (03:29→23:15)
[2019-10-20] MEDS: HUMALOG SUBQ SCH ×4 (04:34→17:54)
[2019-10-20] MEDS: PRILOSEC PO SCH (06:50)
[2019-10-20 06:59] LABS: HEMATOCRIT 21.9 % (42.0-52.0); HEMOGLOBIN 7.1 g/dL (14.0-18.0); MCH 32.4 PG (27-31); MCHC 32.4 g/dL (33-37); MPV 10.3 FL (7.4-10.4); RBC 2.19 XMIL (4.7-6.1); RDW 15.5 % (11.5-14.5); WBC 7.28 X1000 (4.8-10.8)
--- NOTE | 2019-10-20 07:13 | EKG Report ---
Test Performed on : 10/20/2019 06:48:47 AM Test Reason : Afib Blood Pressure : / mmHG Vent. Rate : 074 BPM Atrial Rate : 074 BPM P-R Int : 200 ms QRS Dur : 130 ms QT Int : 442 ms P-R-T Axes : 075 -39 038 degrees QTc Int : 490 ms Normal sinus rhythm. Left axis deviation Nonspecific intraventricular block Abnormal ECG When compared with ECG of 17-OCT-2019 22:56, (Unconfirmed) Sinus rhythm. has replaced Electronic atrial pacemaker ST elevation now present in Anterior leads Confirmed by Codey CARABALLO, Alfonso Navarro ([id number]) on 10/20/2019 9:25:13 AM
--- NOTE | 2019-10-20 07:20 | ORTHOPAEDICS PROGRESS NOTE ---
DATE: 10/20/2019 SUBJECTIVE: Mr. Green is lying in bed this morning. Overall pain is controlled this morning. Physical therapy were with him yesterday; he said he got to the bedside chair for awhile. OBJECTIVE: Left lower extremity exam: His dressing is clean, dry and intact. He is still neurovascularly intact in left lower extremity. ASSESSMENT: Status post left trochanteric femoral nailing for intertrochanteric hip fracture. PLAN: I think Mr. Green is doing well. I encouraged him to continue to move and be mobile. I would like him up several hours in the chair today. He needs to be out of bed for all meals. Physical therapy will continue to work with him. From an Orthopedic standpoint, he is weight bear as tolerated left lower extremity, and will follow up with me in about 2 weeks after surgery. cc: Lj Ma MD
[2019-10-20 07:23] LABS: CALCIUM 8.2 mg/dL (8.8-10.2); CREATININE 4.5 mg/dL (0.7-1.2); POTASSIUM 4.9 mmol/L (3.5-5.1)
[2019-10-20] MEDS ORDERED: NS 500 ML IV ONE (08:16)
[2019-10-20] MEDS ORDERED: NS 1,000 ML IV PRN (08:35)
[2019-10-20] MEDS ORDERED: TYLENOL PO PRN (08:35)
[2019-10-20] MEDS ORDERED: NS 2,000 ML MISC PRN (08:35)
[2019-10-20] MEDS ORDERED: HEPARIN IV PRN ×2 (08:35)
[2019-10-20] MEDS: PATIENT'S OWN MED PO SCH (08:56)
[2019-10-20] MEDS: FISH OIL CONCENTRATE PO SCH (08:56)
[2019-10-20] MEDS: ALDACTONE PO SCH (08:56)
[2019-10-20] MEDS: CARDIZEM CD PO SCH (08:56)
[2019-10-20] MEDS: SENSIPAR PO SCH (08:56)
[2019-10-20] MEDS: ZOLOFT PO SCH (08:56)
[2019-10-20] MEDS: CORDARONE PO SCH (08:56)
[2019-10-20] MEDS: VITAMIN D PO SCH (08:56)
--- NOTE | 2019-10-20 11:33 | NEPHROLOGY PROGRESS NOTE ---
DATE: 10/20/2019 SUBJECTIVE: He states that he is improving in terms of his pain, though he has not tried to work with therapy yet today. He states it was pretty hard last evening. No nausea, vomiting, shortness of breath, etc. OBJECTIVE: Vital Signs: Blood pressure 107/49, heart rate 72, respirations 14, afebrile. General: No acute distress. Skin: Warm and dry. Neck: Neck vein 6 cm. Heart: Regular with systolic murmur at the apex and radiating laterally. Lungs: Equal. No crackles or wheezes. Abdomen: Soft, nontender. Bowel sounds present. Extremities: With trace edema. No clubbing or cyanosis. IMPRESSION: 1. Chronic kidney disease 5 D. We will continue his routine dialysis prescription this afternoon. 2. Cardiac murmur. Echocardiogram performed last evening shows calcification of the annulus, and moderate to moderately severe mitral regurgitation. Very high pulmonary pressures. We will challenge his dry weight. I will ask cardiology to see him. 3. Anemia. Hemoglobin is 7.1 today, so I will give 1 unit packed red blood cells during dialysis today. 4. Status post hip fracture. Progressive. Physical therapy. cc: Reji Antonio MD
[2019-10-20 11:49] LABS: HEPATITIS PROFILE ACUTE SEE COMMENTS
[2019-10-20] MEDS: PHOSLO PO SCH ×2 (11:54→17:54)
--- NOTE | 2019-10-20 12:38 | CARDIOLOGY CONSULTATION ---
DATE: 10/20/2019 CHIEF COMPLAINT ON PRESENTATION: A fall with left-sided hip pain. HISTORY OF PRESENT ILLNESS: Mr. Green is a 73-year-old male with a history of multiple medical problems, including end-stage renal disease with hemodialysis Wednesday, Wednesday, Wednesday, diabetes, paroxysmal atrial fibrillation and pacemaker implantation. He suffered a fall earlier this week while walking. He was taking out the trash and apparently he got light-headed on his walk back. He did not experience syncope, but his legs went weak, and he suffered a fall and a left-sided hip fracture. Subsequently he has had operative intervention on the , and patient is doing fine. He denies any exertional chest pain or orthopnea. He reports his usual hemodialysis sessions have been going as planned with no issues with significant hypo or hypertension. In addition, he reports good oral intake, and no recent fevers or chills. PAST MEDICAL HISTORY: 1. Significant for coronary disease. His last cardiac cath was in 2006 demonstrating reported coronary disease. His last cardiac cath was in 2006 that demonstrated normal arteries; however, he had a coronary CTA in 2013 which suggested minimal lesions throughout all territories with the exception of a marginal 2 branch with a 60 to 70 percent lesion, and an RCA with a proximal 50 to 60 percent lesion. 2. End-stage renal disease. Hemodialysis Wednesday, Wednesday, Wednesday. 3. History of diastolic heart failure. 4. Valvular heart disease. 5. Pulmonary hypertension. 6. COPD. 7. Paroxysmal atrial fibrillation maintained on warfarin and amiodarone. 8. 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 9. Hypertension. 10. Hyperlipidemia. 11. Sleep apnea. 12. Diabetes. SOCIAL HISTORY: He does not presently smoke. No alcohol. FAMILY HISTORY: Significant for hypertension. REVIEW OF SYSTEMS: A 10 system review of systems is negative, except for those things mentioned in the HPI. PHYSICAL EXAMINATION: Vital Signs: He is afebrile. His heart rate is in the 60s to 70s during this hospitalization predominantly. His blood pressure is 107/49. Generally: He is in no acute distress. HEENT: Oropharynx is moist. Poor dentition. Eye examination shows pink conjunctivae, white sclerae. Neck: Examination shows no obvious thyromegaly or thyroid tenderness. Cardiovascular: He sounds to be in a regular rate and rhythm. I do not hear any obvious murmurs. He has warm and well perfused extremities. Chest: Exam sounds clear bilaterally. He has no increased work of breathing. Abdomen: Soft, nontender, nondistended. He has no obvious organomegaly. Skin: Warm and dry throughout without any rashes. Neurological: He is moving all extremities well. He has no lateralizing deficits PERTINENT DATA: His chest x-ray shows cardiomegaly with suggestion of pulmonary edema. He had an echocardiogram demonstrating a preserved EF of 57%. No obvious wall motion abnormalities. Moderate to severe TR with a PA pressure of 85 to 90. Aortic valve showed moderate AI. Mitral valve shows moderate to severe MR. Mild pulmonic insufficiency. His original EKG occurring on the at 2256 hours shows an A-paced rhythm. No acute ischemic changes. Subsequent EKG on the seems to show sinus rhythm. Rate of 74 beats per minute. Unremarkable for ischemia. White count 7.2, hematocrit 21; his presenting hematocrit was 36. His platelet count is 113. His sodium is 130, potassium 4.9, BUN is 51, creatinine 4.5. His albumin is 3. His presenting cardiac enzymes range between 56 and 69. ASSESSMENT: Mr. Green is a 73-year-old gentleman, who presented with a fall and subsequent left hip fracture. PLAN: His valvular insufficiencies appear to have worsened. He has markedly elevated PA pressures. Presently, I will discontinue his diltiazem and try to add in some afterload reduction, initiating him on losartan. I have discussed this with Dr. Antonio regarding potential needs to change his dialysis prescription. We will make an effort at using 25 mg of losartan daily. Patient will follow up with Dr. Hooper as an outpatient for further potential evaluations of his valvular heart disease. cc: Austin Claudio MD
--- NOTE | 2019-10-20 15:59 | PROGRESS NOTE ---
DATE: 10/20/2019 SUBJECTIVE: I have seen and examined Mr. Green today. Mr. Green refers to be doing okay. Denies any chest pain, no shortness of breath. He still has some mild discomfort in the left hip. OBJECTIVE: Vital Signs: Blood pressure is 130/55, pulse of 63, respiration is 18, temperature 96.8 degrees. General: Mr. Green is a 73-year-old, male, he is in bed, in no distress. HEENT: Mucosa is pink and moist. Anicteric. Acyanotic. Neck: Supple. Chest: Clear to auscultation. There were no crepitations, no rhonchi. There is a tunnel dialysis catheter in the right anterior chest wall. There is also an AV fistula on the left arm. Cardiovascular: Regular rate and rhythm. There is about 3/6 systolic murmur best heard in the apex, radiating to the axilla. GI: Abdomen is soft, nontender. Bowel sounds are present. Extremities: No pedal edema. The left hip still has some sterile dressing over the surgical site. The left lower extremity is neurovascularly intact. LABORATORY DATA: Hemoglobin is down to 7.1, platelet count is also down to 113,000. Rest of chemistries are consistent with renal failure. Hepatitis panel is negative. ASSESSMENT: 1. Status post mechanical fall resulting in left intertrochanteric hip fracture. Patient is status post trochanteric femoral nailing. Today is day 2 postop. Physical Therapy has been consulted. Orthopedics continues to be on board. 2. Endstage renal disease, on hemodialysis Wednesday, Wednesday, and Wednesday. Nephrology is on board. 3. Diabetes mellitus, controlled. 4. History of atrial fibrillation, currently rate controlled. Patient is on amiodarone. 5. Transaminitis, presumably from congestive hepatopathy. 6. Recurrent episodes of dizziness, near syncopal attacks. 7. Severe valvulopathy (severe mitral regurgitation and tricuspid regurgitation noted on echocardiogram). Cardiology has been consulted. 8. Dilated right ventricle associated with severe pulmonary hypertension with a pulmonary artery systolic pressure of 85-90 mmHg. 9. Microcytic anemia. Hemoglobin has dropped to 7.1. We will group and crossmatch and transfuse in a unit of packed red blood cells during dialysis. 10. Secondary hyperparathyroidism. Patient has been started on cinacalcet. 11. Vitamin D deficiency. We will start him on replacement. PLAN: In general, I think Mr. Green is doing fairly okay. He was evaluated by Physical Therapy today. He was able to do 4 feet with moderate assistance with front wheel walker. He is pending dialysis session today. He was also evaluated by Cardiology. Losartan has been added to his medications for afterload reduction. His echocardiogram shows worsening of his valvulopathy, we will continue to monitor and follow up with further recommendations from them. Nephrology is also making changes to the regimen. DISPOSITION: Pending rehab placement hopefully on Wednesday. cc: Deacon Blackman MD
[2019-10-21] MEDS: PERIDEX MT SCH ×3 (00:13→20:38)
[2019-10-21] MEDS: LIPITOR PO SCH ×2 (00:14→20:38)
[2019-10-21] MEDS: HUMALOG SUBQ SCH ×5 (00:14→20:39)
[2019-10-21] MEDS: SENSIPAR PO SCH ×3 (00:15→20:38)
[2019-10-21] MEDS: LOPRESSOR PO SCH ×3 (00:15→20:39)
[2019-10-21] MEDS: DUONEB (A & A) INH SCH ×6 (03:30→23:16)
[2019-10-21] MEDS: PRILOSEC PO SCH (06:54)
[2019-10-21 08:06] LABS: HEMATOCRIT 24.2 % (42.0-52.0); HEMOGLOBIN 7.7 g/dL (14.0-18.0); MCHC 31.8 g/dL (33-37); MCV 97.6 FL (81-99); MPV 9.5 FL (7.4-10.4); RBC 2.48 XMIL (4.7-6.1); RDW 15.5 % (11.5-14.5); WBC 9.38 X1000 (4.8-10.8)
[2019-10-21 08:21] LABS: ALBUMIN 2.9 g/dL (3.5-5.0); CALCIUM 7.9 mg/dL (8.8-10.2); CREATININE 3.5 mg/dL (0.7-1.2); PHOSPHORUS 4.5 mg/dL (2.7-4.5); POTASSIUM 4.9 mmol/L (3.5-5.1)
[2019-10-21] MEDS: ALDACTONE PO SCH (08:52)
[2019-10-21] MEDS: PHOSLO PO SCH ×3 (08:53→17:17)
[2019-10-21] MEDS: COZAAR PO SCH (08:53)
[2019-10-21] MEDS: ZOLOFT PO SCH (08:53)
[2019-10-21] MEDS: FISH OIL CONCENTRATE PO SCH (08:53)
[2019-10-21] MEDS: CORDARONE PO SCH (08:53)
[2019-10-21] MEDS: VITAMIN D PO SCH (08:53)
[2019-10-21] MEDS: PATIENT'S OWN MED PO SCH (08:56)
--- NOTE | 2019-10-21 11:54 | NEPHROLOGY PROGRESS NOTE ---
DATE: 10/21/2019 SUBJECTIVE: He is currently sitting on the side of the bed. He states he is somewhat dizzy when he gets up but otherwise has done well and has been able to walk several steps with therapy. Appetite is normal. OBJECTIVE: Vital Signs: Blood pressure 91/47, heart rate 60, respirations 16, afebrile. Intake 600 mL. Output 3 L. General: No acute distress. Skin: Warm and dry. Heart: Regular with systolic murmur. Lungs: Equal. No crackles. Abdomen: Soft, nontender. Bowel sounds are present. Extremities: No edema, clubbing or cyanosis. IMPRESSION: 1. Chronic kidney disease 5D. His next planned dialysis treatment will be Wednesday. 2. Electrolytes/acid base/volume status on target. 3. Anemia. Hemoglobin 7.7 today. He received 1 unit packed red blood cells during his treatment yesterday. We will monitor this on a daily basis and transfuse again if required. 4. Dizziness. Blood pressure is marginally low. His blood pressure medication was titrated and he has taken [place]. It may be necessary to adjust his blood pressure medicine if hypotension is persistent. No changes today though. cc: Reji Antonio MD
[2019-10-21] MEDS ORDERED: NS 500 ML IV ONE (11:57)
--- NOTE | 2019-10-21 12:44 | PROGRESS NOTE ---
DATE: 10/21/2019 SUBJECTIVE: I have seen and examined Mr. Green today. Mr. green was sitting up in the chair. He said he felt kind of dizzy especially when he was getting into the chair. He said by the way "that is what brought me here in the first place and that is what made me fall." Otherwise, he denies any chest pain or shortness of breath. OBJECTIVE: Current vitals: His blood pressure was 75/32 on the right when I took it with the nurse children's nursery assistant. On the left it was 93/36 with a pulse of 62. When I tried to stand him up to check his orthostatic he was for just about 10 to 15 seconds and he just slowly eased himself into the chair. He said he felt dizzy. He could not stand up anymore. When we recheck his blood pressure in that sitting position again, it was 82/36. EXAM: Mr. Green is a 73-year-old female male. He was sitting up in a chair, did not seem to be in any cardiopulmonary distress.HEENT: Mucosa was pink and moist. Anicteric. Acyanotic. Neck: Supple. No JVD. Respiratory System: There is good air entry bilateral. Did not hear any crackles or crepitations. There is a tunnel dialysis catheter in the right anterior chest wall. There is also an AV fistula on the left arm. Cardiovascular: Regular rate and rhythm. There is a 2/6 systolic murmur best head at the tricuspid valve area. GI: Abdomen soft. Bowel sounds present. Extremities: No pedal edema. Left hip has a sterile dressing over the surgical site. The left lower extremity is neurovascularly intact. CONE WORKER: Patient is awake, alert, oriented. There is no focal deficit. LABORATORY DATA: WBC is 9.38, hemoglobin is 7.7. Patient got a unit of PRBC yesterday. Platelet count is 137,000. Chemistry is also reviewed, all consistent with renal disease. Potassium and acid base within normal parameters. Glucose is 162. ASSESSMENT: 1. Status post mechanical fall resulting in a left intertrochanteric hip fracture. The patient is status post left trochanteric femoral nailing. Today is date 3 postop. Physical therapy is on board. 2. Endstage renal disease on hemodialysis Wednesday, Wednesday, and Wednesday. Nephrology is on board. 3. Dizziness associated with hypotension. The patient could not stand up for orthostatic vitals because of extreme dizziness. His vitals this morning when I checked it myself with the nurse children's nursery assistant was remarkably low so we are going to give him a bolus of 500 mL of normal saline. I have also withheld his losartan and spironolactone. We will keep his metoprolol for now and re-evaluate him later today. 4. Severe valvulopathy (severe mitral regurgitation and tricuspid regurgitation noted on echocardiogram). I am unsure if this could also be causing some of his symptoms. Cardiology is on board. 5. Dilated right ventricle, associated with severe pulmonary hypertension with pulmonary artery systolic pressure of 85 to 90 mm/Hg. We will try and avoid hypotension in Mr. Green at this point because of this extreme pulmonary hypertension. We will follow up with further recommendations from Cardiology. We will also consult Pulmonary Medicine to evaluate to see if there are any medications that could be used for the extreme pulmonary hypertension. 6. Macrocytic anemia. Hemoglobin is up to 7.7 after a unit of PRBC transfusion yesterday. 7. Bone mineral disease associated with end-stage renal disease (secondary hyperparathyroidism, vitamin D deficiency), all are being treated. 8. Diabetes mellitus controlled. 9. History of atrial fibrillation. Currently rate and rhythm controlled. Patient is on amiodarone. Unsure if he would also benefit from a low-dose digoxin because of the pulmonary hypertension and RHF. We will however defer any recommendations to Cardiology and Pulmonary Medicine. So, in general, I think Mr. Green is quite symptomatic from hypotension standpoint and I think he gets even more hypotensive by standing up. I have withheld his losartan and spironolactone this morning. We will give him a bolus of 500 mL of normal saline. We will re- evaluate him later on today. I have also consulted Pulmonary Medicine to evaluate him. cc: MD ALLEN Buchanan
--- NOTE | 2019-10-21 22:08 | PULMONOLOGY CONSULTATION ---
DATE: 10/21/2019 REQUESTING PROVIDER: Dr. Deacon Blackman. REASON FOR CONSULTATION: Severe pulmonary hypertension. HISTORY OF PRESENT ILLNESS: This is a 73-year-old male who was initially admitted on 10/17/2019 with left hip intertrochanteric fracture after a fall at home. He underwent left trochanteric femoral nailing by Dr. Ma on 10/18/2019. He has been healing well after the procedure and physical therapy was started on 10/20/2019. He had an echocardiogram on 10/19/2019, which revealed pulmonary pressure at 85 to 90 mmHg. Considering the severity of the pulmonary hypertension, we were asked to evaluate the patient. The patient currently is sitting on the bedside chair with no acute distress noted. He is on room air. He states he is fine. He reports he has fallen twice recently, after dialysis started. He also has frequent falls prior to dialysis. 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 He reports no carotid ultrasound done before. He does have lots of heart problem. He denies any chest pain, palpitations, headache, nausea, bowel habit change, urination discomfort, pedal edema, orthopnea, significant shortness of breath with activities, wheezing or cough. He reports obstructive sleep apnea, on home BiPAP therapy with oxygen for a long time. He states he wears BiPAP every night prior to this admission. PAST MEDICAL HISTORY: 1. Questionable COPD. The patient reports he was diagnosed with COPD one time but later he switched pulmonologists to Dr. Ibrahim, who told him that he does not have COPD. He is not on any inhaler at home. He has no history of smoking use, although he did have severe secondhand smoking exposure when he grew up. He does have a history of pulmonary nodules, followed up by Dr. Ibrahim yearly. 2. Obstructive sleep apnea. The patient is on BiPAP therapy at home with oxygen at 2 L for a long time. The patient states he uses the BiPAP every night at bedtime prior to this admission. 3. Congestive heart failure. 4. Significant coronary artery disease. 5. Endstage renal disease, on hemodialysis every Wednesday, Wednesday and Wednesday. 6. Valvular heart disease. 7. Pulmonary hypertension. 8. Paroxysmal atrial fibrillation, maintained on warfarin and amiodarone. 9. History of tachycardia-bradycardia syndrome with [employer] permanent pacemaker placement in 2017. 10. Hypertension. 11. Hyperlipidemia. 12. Diabetes mellitus type 2. PAST SURGICAL HISTORY: Total knee replacement on the right side, tonsillectomy, right ear surgery, right ankle surgery, permanent pacemaker placement, and recent left trochanteric femoral nailing during this hospital stay. SOCIAL HISTORY: The patient is and lives at home with his family. He has no history of smoking or illicit drug use. He drinks beer socially. He did have significant secondhand smoking exposure when he grew up, as his parents were heavy smokers. FAMILY HISTORY: Positive for hypertension and cancer. ALLERGIES: No known drug allergies. REVIEW OF SYSTEMS: A 10-point review of systems was conducted, and the pertinent is listed within the HPI, otherwise noncontributory. PHYSICAL EXAMINATION: Vital signs: Temperature 98.5 degrees, blood pressure 85/73, pulse 60, respiratory rate 16, oxygen saturation 100% on room air.General: Well- developed, pleasant and cooperative, sitting in the bedside chair on room air, with no acute distress noted. He does wear hearing aids. HEENT: Atraumatic, normocephalic. Trachea midline. Mucosa pink and moist. Oropharynx clear. Pupils equal, round and reactive to light. Respiratory even and unlabored. Symmetrical excursion. Clear to auscultation bilaterally with good air entry bilaterally. Cardiovascular: Regular rate and rhythm, with S1 and S2 appreciated. Murmur noted. Gastrointestinal: Soft, nontender, nondistended. Normoactive bowel sounds in all 4 quadrants. Extremities: No pedal edema. No cyanosis. No clubbing. He does have numerous small bruises on his bilateral upper arms with some small skin lesions, with some small healing skin lesions noted. Neurologic: Pleasant, cooperative. Alert and oriented x3. Speech fluent. Follows commands. LABORATORY DATA: White blood cell 9.38, hemoglobin 7.7, hematocrit 24.2, platelets 137,000. Sodium 142, potassium 4.9, chloride 93, carbon dioxide 26, BUN 37, creatinine 3.5, glucose 162. DIAGNOSTIC DATA: The patient only had 1 chest x-ray done on 10/17/2019 during his hospital stay, which showed cardiomegaly with infiltrates or pulmonary edema. ASSESSMENT: This is a 73-year-old male with a medical history of questionable chronic obstructive pulmonary disease, obstructive sleep apnea, significant coronary artery disease, endstage renal disease, congestive heart failure, valvular heart disease, pulmonary hypertension, paroxysmal atrial fibrillation, tachycardia-bradycardia syndrome, hypertension, hyperlipidemia and diabetes mellitus type 2. He has been admitted on 10/17/2019 with left hip intertrochanteric fracture after a fall. 1. Obstructive sleep apnea. The patient is on home bilevel positive airway pressure therapy with oxygen at 2 L. 2. Severe pulmonary hypertension, with pulmonary artery systolic pressure of 85 to 90 mmHg per echocardiogram on 10/19/2019. 3. Hypotension. The patient's current blood pressure is 85/73, which apparently is the lowest number during his hospital stay. He does have low blood pressure around 90s over 50s occasionally. He received 500 mL normal saline this morning. 4. Endstage renal disease, on hemodialysis every Wednesday, Wednesday and Wednesday. Nephrology on board. 5. Left intertrochanteric hip fracture secondary to fall at home, status post left trochanteric femoral nailing. 6. Macrocytic anemia, severe. Hgb 7.7 this morning. PLAN: 1. We will start the patient on BiPAP therapy at bedtime with oxygen 2 L. We recommend patient to use supplemental oxygen as needed during the daytime. 2. The patient already received a bolus of 500 mL of normal saline this morning. Blood pressure medicine losartan and spironolactone have been held today. We will monitor his blood pressure closely. 2. About medication that could be used for the extreme pulmonary hypertension, we await Dr. Eduardo's recommendation when he comes back this coming Wednesday. 3. We will follow up CBC to make sure the patient's hemoglobin stays in the goal range and give PRBC transfusion if indicated. 4. Continue GI and DVT prophylaxis. 5. Continue bronchodilators. 6. Continue physical therapy. We encourage the patient to do deep breathing and coughing routinely. We encourage patient to use incentive spirometer routinely. 7. We will follow up chest x-ray tomorrow. 8. Further recommendations pending hospital course. Thank you for the courtesy of this consult. Dictated by ALFRED Goncalves for Roland Eduardo MD cc: ALFRED Goncalves MD [facility]
[2019-10-22] MEDS: DUONEB (A & A) INH SCH ×3 (03:27→12:03)
[2019-10-22] MEDS: HUMALOG SUBQ SCH ×3 (06:35→17:38)
[2019-10-22] MEDS: PRILOSEC PO SCH (06:39)
[2019-10-22 07:06] LABS: HEMATOCRIT 23.1 % (42.0-52.0); HEMOGLOBIN 7.5 g/dL (14.0-18.0); MCH 32.1 PG (27-31); MCHC 32.5 g/dL (33-37); MCV 98.7 FL (81-99); MPV 9.9 FL (7.4-10.4); RBC 2.34 XMIL (4.7-6.1); RDW 15.7 % (11.5-14.5); WBC 7.94 X1000 (4.8-10.8)
[2019-10-22 07:21] LABS: CALCIUM 7.9 mg/dL (8.8-10.2); CREATININE 4.9 mg/dL (0.7-1.2); PHOSPHORUS 5.1 mg/dL (2.7-4.5); POTASSIUM 5.3 mmol/L (3.5-5.1)
[2019-10-22] MEDS: PHOSLO PO SCH ×3 (08:42→16:19)
[2019-10-22] MEDS: PERIDEX MT SCH ×2 (08:42→21:15)
[2019-10-22] MEDS: VITAMIN D PO SCH (08:42)
[2019-10-22 08:43] LABS: RETIC% 4.17 % (0.8-2.1); RETIC-HE 34.3 PG (28.2-36.6)
[2019-10-22] MEDS: LOPRESSOR PO SCH ×3 (08:43→21:15)
[2019-10-22] MEDS: SENSIPAR PO SCH ×2 (08:43→21:14)
[2019-10-22] MEDS: CORDARONE PO SCH (08:43)
[2019-10-22] MEDS: ZOLOFT PO SCH (08:43)
--- NOTE | 2019-10-22 08:43 | Diag Imaging Result Doc PS360 ---
EXAM: CHEST-1 VIEW - 10/22/2019 HISTORY: SOB TECHNIQUE: Portable one view chest COMPARISON: 10/17/2019 FINDINGS: There is stable mild cardiomegaly. There is transvenous cardiac pacemaker again seen. There has been apparent decrease in bilateral interstitial infiltrates or edema. There is no dense consolidation, pleural effusion, or pneumothorax identified. Central venous catheter remains in place. IMPRESSION: Decrease in interstitial infiltrates/edema. Electronically signed by Darrell Fry 10/22/2019 8:40 AM
[2019-10-22] MEDS: FISH OIL CONCENTRATE PO SCH (08:44)
[2019-10-22] MEDS: PATIENT'S OWN MED PO SCH (08:44)
[2019-10-22 08:53] LABS: IRON SATURATION 49 %; TIBC 205 ug/dL; TOTAL IRON 100 ug/dL (53-167); UNBOUND IRON 105 ug/dL (112-346)
[2019-10-22 09:35] LABS: FERRITIN 3113 ng/mL (30-400)
--- NOTE | 2019-10-22 13:35 | PROGRESS NOTE ---
DATE: 10/22/2019 SUBJECTIVE: This morning, Mr. Green refers to be doing well. He was sitting up in the chair. He said he felt slightly dizzy again when he was being transferred to the chair. Blood pressures were on the lower end early on but then midmorning, it became normalized, almost on the upper end. OBJECTIVE: Current Vital Signs: Blood pressure is 134/100, pulse of 60, respirations are 20, temperature is 97.8 degrees. General Examination: Mr. Green is a 74-year-old, gentleman. He was sitting in the chair. No distress. HEENT: mucosa is pink and moist. Anicteric. Acyanotic. Neck: Supple. Chest: There was good air entry bilaterally. I did not hear any crepitations. No rhonchi. Cardiovascular: Regular rate and rhythm, about a 2/6 systolic murmur best heard at the tricuspid valve area. GI: Abdomen was soft. Bowel sounds present. Extremities: No pedal edema. The left hip has a sterile dressing over the surgical site. The left lower extremity is neurovascularly intact. COFFEE ROASTER: The patient is awake, alert, and oriented. Laboratory Data: Hemoglobin is 7.5. Rest of CBC is unremarkable. Chemistry is also reviewed, consistent with renal pathology. Iron studies are normal. ASSESSMENT: 1. Status post mechanical fall resulting in a left intertrochanteric hip fracture. The patient is status post left trochanteric femoral nailing. Today is day 4. Physical therapy is on board. 2. Endstage renal disease, on hemodialysis Wednesday, Wednesday, and Wednesday. Nephrology is on board. 3. Dizziness with near syncope at home. 4. Severe valvulopathy (severe mitral and tricuspid regurgitation noted). 5. Dilated right ventricle associated with severe pulmonary hypertension with pulmonary artery systolic pressure of 85 to 90 mmHg. Pulmonary medicine has been consulted. 6. Normocytic anemia. Hemoglobin is down to 7.5. Patient has been given 1 unit of packed red blood cells and is not showing any sign of overt bleeding. Iron studies are normal. 7. Vitamin D deficiency and secondary hyperparathyroidism related to renal disease. 8. Diabetes mellitus, controlled. 9. History of atrial fibrillation, currently rhythm and rate controlled. The patient was on amiodarone. This has been switched to metoprolol by cardiology. We are going to continue to follow. 10. Incomplete urine voiding, concerning for urinary retention, probably as a result of benign prostatic hypertrophy. Will scan bladder if it persist. We will start the patient on Flomax and advised that he follows up with urology. PLAN: In general, I think Mr. Green is fairly stable. Hemoglobin is down to 7.5. FOBT is ordered. So far, iron studies are unremarkable. I think he might benefit from Epoetin . We will defer that recommendation to the drop tester on board. We will also continue following up with further recommendations from cardiology. The patient's losartan has been withheld because of persistent recurrent hypotension since yesterday. Late this afternoon, blood pressures are a lot better so we are going to keep an eye on that. If we continue having high readings, we will start him back on his losartan at a lower dose. cc: Deacon Blackman MD MTDD
--- NOTE | 2019-10-22 16:31 | PROVIDER PROGRESS NOTE ---
Progress Note Dr. Eduardo Progress Note/Pulmonary and or critical care Subjective: The patient is sitting on the bedside chair with no acute distress noted. He did not use BiPAP last night as BiPAP was not set up in the room. He still has severe dizziness and SOB with activities. He denies cough. He states he has no urination yesterday and he is trying at this time. Objective: Vital Signs: T 97.5 (No fever in last 24 hours), WA 59, RR 20, BP 121/54 and SaO2 98% on room air. Physical Examination: General: sitting on the bedside chair. No acute distress noted. HEENT: Normocephalic. Atraumatic. Trachea midline. Mucosa pink and moist. PERRL. Oropharynx clear. Chest: Even and unlabored. Symmetrical excursion. Clear to auscultation bilaterally with good air entry. CVS: S1 and S2 appreciated. Murmur noted. Abdomen: Soft. Nondistended. Nontender. Bowel sounds present in all 4 quadrants. Extremities: No pedal edema. No cyanosis.No clubbing. Neuro: A/O x3. Speech fluent. Follow commands. Labs and Radiology: Laboratory Results 10/21/19 10/22/19 10/22/19 20:31 06:09 06:09 WBC 7.94 RBC 2.34 L Hgb 7.5 L Hct 23.1 L MCV 98.7 MCH 32.1 H MCHC 32.5 L RDW Std Deviation 15.7 H Plt Count 149 MPV 9.9 Percent Retic Retic Hgb Equivalent Sodium 125 L Potassium 5.3 H Chloride 87 L Carbon Dioxide 22 L Anion Gap 16 BUN 57 H D Creatinine 4.9 H Estimated GFR/1.73 m2 12 BUN/Creatinine Ratio 12 Glucose 111 H POC Glucose 145 H D Calculated Osmolality 268 Calcium 7.9 L Phosphorus 5.1 H Iron TIBC % Saturation Unsat Iron Binding Ferritin Albumin 3.0 L Vitamin B12 Folate 10/22/19 10/22/19 10/22/19 06:09 06:09 06:09 WBC RBC Hgb Hct MCV MCH MCHC RDW Std Deviation Plt Count MPV Percent Retic Retic Hgb Equivalent Sodium Potassium Chloride Carbon Dioxide Anion Gap BUN Creatinine Estimated GFR/1.73 m2 BUN/Creatinine Ratio Glucose POC Glucose Calculated Osmolality Calcium Phosphorus Iron 100 TIBC 205 % Saturation 49 Unsat Iron Binding 105 L Ferritin 3113 H Albumin Vitamin B12 1850 H Folate 9.1 10/22/19 10/22/19 10/22/19 06:09 06:10 11:05 WBC RBC Hgb Hct MCV MCH MCHC RDW Std Deviation Plt Count MPV Percent Retic 4.17 H Retic Hgb Equivalent 34.3 Sodium Potassium Chloride Carbon Dioxide Anion Gap BUN Creatinine Estimated GFR/1.73 m2 BUN/Creatinine Ratio Glucose POC Glucose 109 H 188 H D Calculated Osmolality Calcium Phosphorus Iron TIBC % Saturation Unsat Iron Binding Ferritin Albumin Vitamin B12 Folate Assessment: MCKAY on home BiPAP therapy with NC 2L at bedtime. Severe pulmonary hypertension with pulmonary artery systolic pressure of 85-90 mmHg per echocardiogram on 10/19/19. Shock. End-stage renal disease. On hemodialysis Wednesday, Wednesday and Wednesday. Nephrology on board. Left intertrochanteric hip fracture secondary to a fall at home, s/p left trochanteric femoral nailing. Normocytic anemia, severe. Hgb 7.5 this morning. Plan: Continue BiPAP at bedtime with supplemental oxygen 2L. We recommend patient to use supplemental oxygen as needed during the daytime. We will monitor patients blood pressure closely. We follow up CBC to make sure Hgb within the goal range and give PRBC transfusion if indicated. Continue bronchodilators. Continue physical therapy. We encourage patient to do deep breathing and coughing routinely. We encourage patient to use the incentive spirometer routinely. Continue GI and DVT prophylaxis.
[2019-10-22] MEDS: FLOMAX PO SCH (21:14)
[2019-10-22] MEDS: LIPITOR PO SCH (21:14)
[2019-10-23] MEDS: HUMALOG SUBQ SCH ×5 (00:37→23:10)
[2019-10-23] MEDS: PRILOSEC PO SCH ×2 (06:19→22:28)
[2019-10-23 07:08] LABS: HEMATOCRIT 21.2 % (42.0-52.0); MCH 32.1 PG (27-31); MCV 97.2 FL (81-99); MPV 9.7 FL (7.4-10.4); RBC 2.18 XMIL (4.7-6.1); RDW 15.5 % (11.5-14.5); WBC 7.17 X1000 (4.8-10.8)
[2019-10-23] MEDS ORDERED: NS 2,000 ML MISC PRN (07:14)
[2019-10-23] MEDS ORDERED: TYLENOL PO PRN (07:14)
[2019-10-23] MEDS ORDERED: NS 1,000 ML IV PRN (07:14)
[2019-10-23 07:26] LABS: ALBUMIN 2.8 g/dL (3.5-5.0); CALCIUM 7.6 mg/dL (8.8-10.2); PHOSPHORUS 5.8 mg/dL (2.7-4.5)
[2019-10-23] MEDS ORDERED: NS 500 ML IV ONE (08:39)
--- NOTE | 2019-10-23 09:23 | ORTHOPAEDICS PROGRESS NOTE ---
DATE: 10/23/2019 SUBJECTIVE DATA: Mr. Green is sitting comfortably in bed. He denies any pain to the hip. He has had some trouble getting up and mobilizing. OBJECTIVE DATA: Left lower extremity exam, his dressing is clean, dry, and intact. He is neurovascularly intact to the left lower extremity. There are no signs of erythema or drainage. ASSESSMENT: Status post left trochanteric femoral nailing. PLAN: Mr. Green is doing fairly well. His pain is controlled. He is having some trouble mobilizing. I have encouraged him to again get up and mobilize and get to the chair and walk with physical therapy. He can be full weightbearing on this hip and I reiterated that from him. Whenever he is discharged, we will plan to see him in the office about 1 week after discharge. Dictated by ALFRED Mota for Lj Ma MD cc: ALFRED Mota MD
[2019-10-23] MEDS: PHOSLO PO SCH ×3 (12:59→17:04)
[2019-10-23] MEDS: LOPRESSOR PO SCH ×2 (13:55→23:10)
--- NOTE | 2019-10-23 14:54 | PROGRESS NOTE ---
DATE: 10/23/2019 SUBJECTIVE: This morning, Mr. Green refers to be doing well. Denies any new complaints. He still complains of some mild dizziness, especially when he stands up. OBJECTIVE: Vital Signs: Blood pressure is 105/35, pulse of 67, respirations are 20, temperature is 98.6 degrees. The patient's blood pressure early on today was in the upper 90s for systolic. General Examination: Mr. Green is a 74-year-old, gentleman. He was in bed. No distress. HEENT: Mucosa is pink and moist. Anicteric. Acyanotic. Neck: Supple. There was no JVD. Respiratory System: There is good air entry bilaterally. No crepitations. No rhonchi. Cardiovascular: Regular rate and rhythm. There is a 2/6 systolic murmur in the tricuspid area. GI: Abdomen is soft, nontender. Bowel sounds are present. Extremities: No pedal edema. Left hip has a sterile dressing over the surgical site. The left lower extremity is neurovascularly intact. PATHOLOGY LAB TECHNICIAN: The patient is awake, alert, and oriented. There is no focal deficit. Laboratory Data: Hemoglobin is down to 7.0. Rest of CBC is unremarkable. Chemistry is also reviewed. It is consistent with renal failure. ASSESSMENT: 1. Status post mechanical fall resulting in a left intertrochanteric hip fracture. The patient is status post left trochanteric femoral nailing. Today is day 5. Physical therapy and orthopedics are on board. There is a plan for rehab placement for Mr. Green. 2. Endstage renal disease, on hemodialysis Wednesday, Wednesday, and Wednesday. Nephrology is on board. 3. Frequent recurrent dizziness with near syncope at home, suspected to be related to the severe valvular disease. Cardiology is on board. 4. Severe mitral and tricuspid regurgitation noted on echocardiogram. 5. Dilated right ventricle associated with severe pulmonary hypertension with pulmonary artery systolic pressure of 85 to 90 mmHg. Pulmonary medicine has also been consulted. We have advised Mr. Green to avoid any dehydration or hypotension. 6. Normocytic anemia. The patient has been given a unit of blood transfusion during the hospital course. Unfortunately, this morning, his hemoglobin is down to 7.0. He is still not showing any signs of overt bleeding. We are going to give him a unit of blood during dialysis and we have consulted gastroenterology to evaluate a possible gastrointestinal source of blood loss. 7. Vitamin D deficiency. We will continue replacement. 8. Secondary hyperparathyroidism related to renal disease. The patient has been started on cinacalcet. 9. Paroxysmal atrial fibrillation, currently rate and rhythm controlled. Patient was on amiodarone and he has been switched to metoprolol by cardiology. PLAN: In general, I think Mr. Green is doing a lot better. He still remains with some episodes of dizziness which, according to him, is the main reason why he came to the hospital. He said he felt one of those dizzy spells at home which led to his fall. During the workup, it has been found that he has severe mitral and tricuspid valve regurgitation, dilated right ventricle, severe pulmonary hypertension. Both cardiology and pulmonary medicine have evaluated him. He underwent orthopedic surgery on the and he is doing fairly stable from that standpoint. Unfortunately, during the hospital course, his blood pressures have been fairly low on multiple occasions. We are titrating his medications and we will follow up with further recommendations from the other subspecialties. Mr. Green is getting another unit of blood transfusion and GI will evaluate him. cc: Deacon Blackman MD
--- NOTE | 2019-10-23 14:56 | NEPHROLOGY PROGRESS NOTE ---
DATE: 10/23/2019 SUBJECTIVE: He is on the dialysis machine at the time of my exam. He states that he has been up with therapy, but he has not taken many steps. Appetite is acceptable. No shortness of breath. OBJECTIVE: Vital Signs: Blood pressure 105/35, heart rate 67, respirations 20, afebrile. General: No acute distress. Skin: Warm and dry. Neck: Neck veins are not distended. Heart: Regular. No gallops. Systolic murmur present. Lungs: Equal. No crackles. Abdomen: Soft, nontender. Bowel sounds present. Extremities: No edema, clubbing, or cyanosis. IMPRESSION: Chronic kidney disease 5D. He is undergoing his routine hemodialysis today. Moderate hyponatremia and hyperkalemia are present. These will be addressed with his dialysis treatment. Encouraged to eat and work with therapy. Hemoglobin is trending downward. He had 1 unit of packed red blood cells back on 10/20/2019, and likely will need another unit. Will go ahead and transfuse today. cc: Reji Antonio MD
[2019-10-23] MEDS: VITAMIN D PO SCH (15:22)
[2019-10-23] MEDS: ZOLOFT PO SCH (15:22)
[2019-10-23] MEDS: SENSIPAR PO SCH ×2 (15:22→22:28)
[2019-10-23] MEDS: FISH OIL CONCENTRATE PO SCH (15:23)
[2019-10-23] MEDS: CORDARONE PO SCH (15:23)
[2019-10-23] MEDS: PERIDEX MT SCH ×2 (15:23→22:28)
--- NOTE | 2019-10-23 16:08 | PROVIDER PROGRESS NOTE ---
Progress Note Dr. Eduardo Progress Note/Pulmonary and or critical care Subjective: The patient is on dialysis. He is not wearing his hearing aid at this time and he has difficulty hearing. He states he is fine. Objective: Vital Signs: T 98.6 (No fever in last 24 hours), LA 67, RR 20, BP 105/35 and SaO2 94% on room air. Physical Examination: General: sitting on the bedside chair. No acute distress noted. HEENT: Normocephalic. Atraumatic. Trachea midline. Mucosa pink and moist. PERRL. Oropharynx clear. Chest: Even and unlabored. Symmetrical excursion. Clear to auscultation bilaterally with good air entry. CVS: S1 and S2 appreciated. Murmur noted. Abdomen: Soft. Nondistended. Nontender. Bowel sounds present in all 4 quadrants. Extremities: No pedal edema. No cyanosis.No clubbing. Neuro: A/O x3. Speech fluent. Follow commands. Labs and Radiology: Laboratory Results 10/20/19 10/22/19 10/22/19 06:55 16:35 22:52 WBC RBC Hgb Hct MCV MCH MCHC RDW Std Deviation Plt Count MPV Sodium Potassium Chloride Carbon Dioxide Anion Gap BUN Creatinine Estimated GFR/1.73 m2 BUN/Creatinine Ratio Glucose POC Glucose 163 H 184 H Calculated Osmolality Calcium Phosphorus Albumin Blood Type Antibody Screen Crossmatch See Detail 10/23/19 10/23/19 10/23/19 06:18 06:18 06:18 WBC 7.17 RBC 2.18 L Hgb 7.0 L Hct 21.2 L MCV 97.2 MCH 32.1 H MCHC 33.0 RDW Std Deviation 15.5 H Plt Count 159 MPV 9.7 Sodium 124 L Potassium 5.0 Chloride 85 L Carbon Dioxide 22 L Anion Gap 17 BUN 80 H Creatinine 6.0 H Estimated GFR/1.73 m2 9 BUN/Creatinine Ratio 13 Glucose 140 H POC Glucose Calculated Osmolality 276 Calcium 7.6 L Phosphorus 5.8 H Albumin 2.8 L Blood Type O POSITIVE Antibody Screen NEGATIVE Crossmatch See Detail 10/23/19 10/23/19 06:35 14:05 WBC RBC Hgb Hct MCV MCH MCHC RDW Std Deviation Plt Count MPV Sodium Potassium Chloride Carbon Dioxide Anion Gap BUN Creatinine Estimated GFR/1.73 m2 BUN/Creatinine Ratio Glucose POC Glucose 148 H 149 H Calculated Osmolality Calcium Phosphorus Albumin Blood Type Antibody Screen Crossmatch Assessment: MCKAY on home BiPAP therapy with NC 2L at bedtime. Severe pulmonary hypertension with pulmonary artery systolic pressure of 85-90 mmHg per echocardiogram on 10/19/19. Shock. Possible pneumonia with bilateral interstitial infiltrates vs. edema. End-stage renal disease. On hemodialysis Wednesday, Wednesday and Wednesday. Nephrology on board. Left intertrochanteric hip fracture secondary to a fall at home, s/p left trochanteric femoral nailing. Normocytic anemia, severe. Plan: Continue BiPAP at bedtime with supplemental oxygen 2L. We recommend patient to use supplemental oxygen as needed during the daytime. We will monitor patients blood pressure closely. We follow up CBC to make sure Hgb within the goal range and give PRBC transfusion if indicated. Continue bronchodilators. Continue physical therapy. We encourage patient to do deep breathing and coughing routinely. We encourage patient to use the incentive spirometer routinely. Continue GI and DVT prophylaxis. We are ordering venous U/S bilateral legs at this time to rule out any thromboembolism. V/Q scan is not recommended secondary to ESRD. CT angiogram pulmonary arteries is not ideal with pneumonia.
[2019-10-23] MEDS: PATIENT'S OWN MED PO SCH (17:04)
[2019-10-23] MEDS: LIPITOR PO SCH (22:28)
[2019-10-23] MEDS: FLOMAX PO SCH (22:28)
[2019-10-24 06:40] LABS: HEMATOCRIT 24.4 % (42.0-52.0); MCH 31.9 PG (27-31); MCHC 32.8 g/dL (33-37); MCV 97.2 FL (81-99); MPV 9.8 FL (7.4-10.4); RBC 2.51 XMIL (4.7-6.1); RDW 17.1 % (11.5-14.5); WBC 6.21 X1000 (4.8-10.8)
[2019-10-24 06:54] LABS: CALCIUM 7.6 mg/dL (8.8-10.2); CREATININE 4.1 mg/dL (0.7-1.2); PHOSPHORUS 3.7 mg/dL (2.7-4.5)
--- NOTE | 2019-10-24 07:10 | Extremity Venous Study ---
PROCEDURE NAME: Venous U/S Bilateral Legs - 10/23/2019 REQUESTING PHYSICIAN: Dr. Eduardo. BRIDGE CONSTRUCTION INSPECTOR: Maldonado. INDICATIONS: 1. Left hip surgery. 2. Edema. EQUIPMENT: [employer] E9 ultrasound system with a 9 L-D transducer. FINDINGS: Images of the bilateral lower extremity venous systems were obtained in both sagittal and transverse planes. Doppler was used to evaluate the veins for spontaneity, phasicity, respiratory excursion, and digital augmentation. RESULTS: Normal venous compression. Normal venous flow. No obvious superficial or deep venous thrombosis noted. INTERPRETATION: Essentially normal bilateral lower extremity venous study. cc: MD Roland Worthington MD
[2019-10-24] MEDS: HUMALOG SUBQ SCH ×4 (07:58→22:14)
[2019-10-24] MEDS: ZOLOFT PO SCH (09:06)
[2019-10-24] MEDS: PERIDEX MT SCH ×2 (09:06→22:19)
[2019-10-24] MEDS: SENSIPAR PO SCH ×2 (09:06→22:14)
[2019-10-24] MEDS: FISH OIL CONCENTRATE PO SCH (09:06)
[2019-10-24] MEDS: VITAMIN D PO SCH (09:06)
[2019-10-24] MEDS: CORDARONE PO SCH (09:06)
[2019-10-24] MEDS: PRILOSEC PO SCH ×2 (09:06→22:13)
[2019-10-24] MEDS: PHOSLO PO SCH ×3 (09:06→18:18)
[2019-10-24] MEDS: PATIENT'S OWN MED PO SCH (09:07)
[2019-10-24] MEDS ORDERED: SORBITOL PO ONE (11:24)
[2019-10-24] MEDS ORDERED: SORBITOL PO PRN (11:24)
--- NOTE | 2019-10-24 12:03 | NEPHROLOGY PROGRESS NOTE ---
DATE: 10/24/2019 SUBJECTIVE: He is feeling well. He has not been very mobile but he is working on it. Less pain. Eating but no bowel movement in several days. OBJECTIVE: Vital Signs: Blood pressure 99/46, heart rate 65, respirations 16, afebrile. General: No acute distress. Skin: Warm and dry. Neck: Neck veins are not distended. Heart: Regular. No gallops. Lungs: Equal. No crackles or wheezes. Abdomen: Soft, nontender. Bowel sounds present. Extremities: No edema, clubbing or cyanosis. IMPRESSION: 1. Chronic kidney disease 5D. He had his routine dialysis treatment yesterday. 2. Constipation. We will order sorbitol as needed. 3. Electrolytes/acid base/blood pressure in target. 4. Anemia. Hemoglobin is below target but stable at 8.0. He has received 1 unit packed red blood cells. cc: Reji Antonio MD
[2019-10-24] MEDS: LOPRESSOR PO SCH ×2 (13:21→22:14)
[2019-10-24] MEDS: COZAAR PO SCH (13:21)
[2019-10-24] MEDS ORDERED: ZYRTEC PO PRN (13:29)
--- NOTE | 2019-10-24 14:11 | GASTROENTEROLOGY CONSULTATION ---
DATE: 10/24/2019 REASON FOR CONSULTATION: Recurrent anemia. HISTORY OF PRESENT ILLNESS: Mr. Green is a 74-year-old, male who came into the hospital on 10/17/2019 with a fall. The patient mentioned that it was a Wednesday when he went to put the trash outside. He was okay going out, but when he was coming back, he felt like he was feeling weak, dizzy. At the same time, he wanted to use restroom so he was trying to run to get to the room. He said that he was so weak and dizzy that he fell in the driveway. He has a big bruise on his left hip. On presenting to the ER, an x-ray was taken. The hip and pelvis x-ray showed that he had an intertrochanteric fracture to the left hip. The patient does have a history of end-stage renal disease, diabetes, atrial fibrillation, hypertension, congestive heart failure, COPD. He also has a pacemaker placed. The patient is on dialysis. He did have an EGD and colonoscopy on 06/02/2018. He had erosive gastritis in the antrum. biopsy was taken, duodenitis in the duodenum and a single polyp found in the rectum, it was removed and biopsy was done. Patients stool studies were negative for C-diff toxin and antigen. Antral biopsy revealed chronic superficial gastritis with erosion and negative H-pylori. Rectal polyp biopsy revealed hyperplastic polyp, inflamed, no dysplasia or neoplasia noted. The patient's hemoglobin and hematocrit on admission were 11.7 and 36.6. Today, it is 8.0 and 24.4. The patient has denied noticing any bleeding episodes. PAST MEDICAL HISTORY: Atrial fibrillation, endstage renal disease, skin cancer, congestive heart failure, COPD, type 2 diabetes, hyperlipidemia, hypertension, sleep apnea, GERD. PAST SURGICAL HISTORY: Total knee replacement on the right side, tonsillectomy, right ear surgery, right ankle surgery, current left hip surgery, and pacemaker placement. SOCIAL HISTORY: The patient is . He denies smoking, drinking, or using any illicit drugs. ALLERGIES: No known drug allergies. FAMILY HISTORY: Positive for hypertension and cancer. HOME MEDICATIONS: Fish oil 2400 mg daily, iron tablet 1 capsule daily, Lasix 40 mg p.o. daily, omeprazole 40 p.o. daily, atorvastatin 20 mg p.o. at bedtime, metoprolol tartrate 25 mg p.o. twice a day, amiodarone 200 mg p.o. daily, Aldactone 50 mg p.o. daily, Zoloft 50 mg p.o. daily, Cardizem 120 mg p.o. daily, and [place] 10/325 mg 1 tablet every 6 hours as needed. REVIEW OF SYSTEMS: As per HPI. Otherwise, 12-point review of systems is negative. PHYSICAL EXAMINATION: Vital Signs: Temperature 98.3 degrees, pulse 98, respirations 20, blood pressure 95/43, oxygen saturation 98% on room air. His weight is 172 pounds. BMI is 27.8 kg/m2. General: He is alert, oriented x3, and in no acute distress. HEENT: Pale conjunctivae. No icterus. PERRL. Neck: Supple. Lungs: Clear to auscultation. Cardiovascular: Regular rate and rhythm. Abdomen: Soft, nontender, nondistended. Active bowel sounds heard in all four quadrants. Extremities: No clubbing, no cyanosis. He has an incision on the left hip. He also has a bruise on his left hip and on his left elbow. Neurologic: Alert and oriented x3. Nonfocal. Cranial nerves 2-12 grossly intact. LABS: WBCs are 6.21, RBCs 2.51, hemoglobin is 8.0, hematocrit is 24.4, platelet count is 161,000. Sodium 128, potassium 5.0, chloride 90, carbon dioxide is 27, anion gap 11, BUN 55, creatinine is 4.1, glucose 143, calcium is 7.6, phosphorus 3.7, albumin is 3.0. The patient's hepatitis profile has been negative. IMAGING: His extremity venous study has shown normal venous compression, normal venous flow. No obvious superficial or deep venous thrombosis noted. IMPRESSION AND PLAN: 1. Anemia of Chronic disease. 2. Left hip fracture, s/p left trochanteric femoral nailing. 3. Hyponatremia. 4. End stage renal disease. 5. Atrial fibrillation. 6. CHF. 7. COPD. 8. GERD. PLAN: Mr. Green is a 74-year-old, male who is here in the hospital due to his hip fracture, status post left trochanteric femoral nailing. GI has been consulted for his anemia. The patient's hemoglobin and hematocrit today are 8.0 and 24.4. The patient has denied noticing any bleeding episodes. He is not actively bleeding. We will continue him on PPI's twice a day. We will continue to monitor the patient's H & H and if his hemoglobin drops below 7, we will transfuse PRBC's as per protocol. We do not plan to do any procedures as of now. We will continue to monitor his H & H and follow the plan of care per PCP. This plan has been discussed with Dr. Lamb. Thank you for your consult. Please call us for any further questions or concerns. Dictated by ALFRED Marino for Uriel Lamb MD [facility]
--- NOTE | 2019-10-24 17:58 | PROVIDER PROGRESS NOTE ---
Progress Note Dr. Eduardo Progress Note/Pulmonary and or critical care Subjective: The patient is sitting on the bedside chair on room air. He is having running noise at this time. He reports some allergy at times. He denies cough, SOB or chest congestion. Objective: Vital Signs: T 97.5 (No fever in last 24 hours), MI 65, RR 16, BP 99/46 and SaO2 94% on BiPAP. Physical Examination: General: sitting on the bedside chair. No acute distress noted. HEENT: Normocephalic. Atraumatic. Trachea midline. Mucosa pink and moist. PERRL. Oropharynx clear. Chest: Even and unlabored. Symmetrical excursion. Clear to auscultation bilaterally with good air entry. CVS: S1 and S2 appreciated. Murmur noted. Abdomen: Soft. Nondistended. Nontender. Bowel sounds present in all 4 quadrants. Extremities: No pedal edema. No cyanosis.No clubbing. Neuro: A/O x3. Speech fluent. Follow commands. Labs and Radiology: Laboratory Results 10/23/19 10/24/19 10/24/19 21:07 06:00 06:00 WBC 6.21 RBC 2.51 L Hgb 8.0 L Hct 24.4 L MCV 97.2 MCH 31.9 H MCHC 32.8 L RDW Std Deviation 17.1 H Plt Count 161 MPV 9.8 Sodium 128 L Potassium 5.0 Chloride 90 L Carbon Dioxide 27 Anion Gap 11 BUN 55 H Creatinine 4.1 H Estimated GFR/1.73 m2 14 BUN/Creatinine Ratio 13 Glucose 143 H POC Glucose 136 H Calculated Osmolality 275 Calcium 7.6 L Phosphorus 3.7 Albumin 3.0 L 10/24/19 10/24/19 10/24/19 06:34 11:21 16:03 WBC RBC Hgb Hct MCV MCH MCHC RDW Std Deviation Plt Count MPV Sodium Potassium Chloride Carbon Dioxide Anion Gap BUN Creatinine Estimated GFR/1.73 m2 BUN/Creatinine Ratio Glucose POC Glucose 147 H 178 H 174 H Calculated Osmolality Calcium Phosphorus Albumin Assessment: MCKAY on home BiPAP therapy with NC 2L at bedtime. Severe pulmonary hypertension with pulmonary artery systolic pressure of 85-90 mmHg per echocardiogram on 10/19/19. Shock. Bilateral interstitial infiltrates vs. edema. The possibility of pneumonia is low. Patient does not have any respiratory distress. He is on room air. He has no fever. His WBC is WNL. End-stage renal disease. Hemodialysis Wednesday, Wednesday and Wednesday. Nephrology on board. Left intertrochanteric hip fracture secondary to a fall, s/p left trochanteric femoral nailing. Normocytic anemia. s/p transfusion of 1 unit PRBC on 10/23/19 and 1 unit LRRBC on 10/20/19. Plan: Continue BiPAP at bedtime with supplemental oxygen 2L. We recommend patient to use supplemental oxygen as needed during the daytime. We will monitor patients blood pressure closely. We are adding Flonase and Zyrtec at this time. We follow up CBC to make sure Hgb within the goal range and give PRBC transfusion if indicated. Continue bronchodilators. Continue physical therapy. We encourage patient to do deep breathing and coughing routinely. We encourage patient to use the incentive spirometer routinely. Continue GI and DVT prophylaxis. Rehab placement planning.
[2019-10-24] MEDS ORDERED: OXY IR PO PRN (17:59)
--- NOTE | 2019-10-24 18:20 | PROGRESS NOTE ---
DATE: 10/24/2019 INTERVAL HISTORY: No acute events overnight. Mr. Green remained hypotensive with systolic blood pressure in 80s to 90s. His fecal occult blood test was negative. He was able to work out with physical therapy today. SUBJECTIVE: Mr. Green denies new complaints. He denies any chest pain or shortness of breath. He denies nausea, vomiting, or abdominal pain. OBJECTIVE: Vital Signs: Currently, vitals show temperature of 97.8 degrees, pulse 62, respiratory rate 19, and blood pressure 96/47. He is saturating 100% General: Not in acute distress. HEENT: Oral cavity is moist. Lungs: Air entry bilaterally equal. No wheezing, rhonchi, or crackles. Cardiovascular: S1, S2 normal. Systolic murmur heard in tricuspid area and accentuated during inspiration. No gallop. Abdomen: Soft and nontender. Extremities: He has bilateral lower extremity edema, which is more pronounced on the left side. Neurologic: He is alert and oriented x3. He has intact bilateral dorsalis pedis pulses. He does have lateral thigh wound on the left lower extremity. The upper wound appears to have some hematoma formation underneath. There is no active oozing though. LABORATORY: Labs suggestive of WBC 6.2, hemoglobin 8, and platelet 161,000. His BUN is 55, creatinine 4.1, and blood sugar 174. No positive microbiological data. Extremity venous study performed yesterday did not have DVT. ASSESSMENT AND PLAN: 1. Mechanical fall, status post left intertrochanteric hip fracture status post left trochanter femoral nailing. Today is postoperative day 6. Continue physical therapy. Continue pain management with acetaminophen and [place]. Acetaminophen, [place], and oxycodone as necessary. I will consider resuming DVT prophylaxis on him. 2. Acute blood loss anemia on chronic anemia. He has required 2 units of blood transfusion. His blood loss is likely related to the hip surgery. I will continue to keep him on multivitamin supplements. 3. Repeated episodes of dizziness, lightheaded, and near-syncope related to severe mitral and tricuspid regurgitation, dilated right ventricle,with severe pulmonary hypertension with pressure of 85 to 90 mmHg. Pulmonology and Cardiology on board. Continue metoprolol, losartan and atorvastatin. 4. Paroxysmal atrial fibrillation. Continue amiodarone and metoprolol. He was not listed to be taking any anticoagulation at home. Considering his hip fracture, I would consider resuming him on some form of DVT prophylaxis. 5. History of chronic kidney disease stage 5 on Wednesday, Wednesday, and Wednesday hemodialysis. Appreciate Nephrology recommendations. I will consider continuing him on cinacalcet for secondary hyperparathyroidism, calcium acetate for hypocalcemia and hyperphosphatemia. DISPOSITION: Continue to monitor patient inside the hospital as we await social work rehab bed placement. Plan of care discussed with Dr. Green. His questions have been answered. cc: Robb Rea MD
[2019-10-24] MEDS ORDERED: FLONASE NAS SCH (21:00)
[2019-10-24] MEDS: LIPITOR PO SCH (22:13)
[2019-10-24] MEDS: FLOMAX PO SCH (22:14)
[2019-10-24] MEDS: HEPARIN SUBQ SCH (22:20)
[2019-10-25] MEDS: HUMALOG SUBQ SCH (06:09)
[2019-10-25] MEDS: HEPARIN SUBQ SCH (06:09)
[2019-10-25 06:29] LABS: HEMATOCRIT 24.8 % (42.0-52.0); HEMOGLOBIN 8.2 g/dL (14.0-18.0); MCH 32.2 PG (27-31); MCHC 33.1 g/dL (33-37); MCV 97.3 FL (81-99); MPV 9.8 FL (7.4-10.4); RBC 2.55 XMIL (4.7-6.1); WBC 6.06 X1000 (4.8-10.8)
[2019-10-25 07:00] LABS: ALBUMIN 2.8 g/dL (3.5-5.0); CREATININE 4.4 mg/dL (0.7-1.2); PHOSPHORUS 3.6 mg/dL (2.7-4.5); POTASSIUM 4.1 mmol/L (3.5-5.1)
[2019-10-25] MEDS ORDERED: TYLENOL PO PRN (07:13)
[2019-10-25] MEDS ORDERED: NS 1,000 ML IV PRN (07:13)
[2019-10-25] MEDS ORDERED: NS 2,000 ML MISC PRN (07:13)
[2019-10-25] MEDS ORDERED: CALCIUM GLUCONATE 4.65 MEQ in NS 50 ML IV ONE (09:26)
--- NOTE | 2019-10-25 13:28 | DISCHARGE SUMMARY ---
ADMISSION DATE: 10/17/2019 DISCHARGE DATE: 10/25/2019 DISCHARGE DISPOSITION: Rehab. DISCHARGE CONDITION: Hemodynamically stable. He remains slightly hypotensive with systolics in 80s and 90s, though he has been asymptomatic at rest. He was advised to follow orthostatic hypotension-related precautions. His left lateral thigh hermilo have to be removed within 10 days. He was advised to have outpatient Cardiology followup for his regurgitating mitral and tricuspid valves. DISCHARGE DIAGNOSES: 1. Mechanical fall. 2. Left intertrochanteric hip fracture. 3. Acute blood loss anemia, requiring blood transfusion. 4. Repeated episodes of dizziness, lightheadedness, and near syncope. 5. Severe mitral and tricuspid regurgitation. 6. Pulmonary arterial hypertension with systolic pulmonary artery pressure of 85 to 90 mmHg. 7. Paroxysmal atrial fibrillation. OTHER DIAGNOSES: 1. History of chronic kidney disease stage 5, on Wednesday, Wednesday, Wednesday hemodialysis. 2. Hypocalcemia. 3. Secondary hyperparathyroidism. 4. Hyperphosphatemia. 5. History of chronic obstructive pulmonary disease. 6. Status post pacemaker implantation for atrial fibrillation. 7. History of obstructive sleep apnea. 8. Essential hypertension. DISCHARGE MEDICATIONS: 1. Atorvastatin 20 mg at nighttime. 2. Amiodarone 200 mg daily. 3. [place]-3 fatty acid capsule 1 tablet daily. 4. Ferrous sulfate 325 mg daily. 5. Multivitamin 1 capsule daily. 6. Furosemide 40 mg daily. 7. Metoprolol tartrate 25 mg b.i.d. 8. Omeprazole 40 mg daily. 9. Sertraline 50 mg daily. 10. Heparin subcutaneously for DVT prophylaxis 5000 international units every 8 hours. 11. Losartan 25 mg daily. 12. [place] 10 one tablet every 6 hours as needed for pain, 20 tablets have been prescribed. 13. Calcium acetate 667 mg t.i.d. 14. Cinacalcet 30 mg b.i.d. 15. Vitamin D3, 2000 units daily. FOLLOWUP INSTRUCTIONS: 1. Follow up with orthopedic doctor, Dr. Ma, in his office in about 10 days' time. 2. Continue full weightbearing on his hip. 3. Follow up orthostatic hypotension-related precautions and avoid sudden change in body position. 4. Follow up with Dr. Hooper, preparing box tender, within 2 to 3 weeks' time for severe mitral and tricuspid regurgitation. PHYSICAL EXAMINATION: Current Vital Signs: Temperature 98.5 degrees, pulse 70, respiratory rate 16, blood pressure 96/47, saturating 95% on 2 L nasal cannula. General: Not in acute distress. HEENT: Oral cavity is moist. Lungs: Air entry bilaterally equal. No wheeze, rhonchi, or crackles. Cardiovascular: S1, S2 normal. Systolic murmur in tricuspid area, accentuated during inspiration. No gallop. Abdomen: Soft, nontender. Extremities: Mild bilateral lower extremity edema. He has intact bilateral dorsalis pedis pulses. Lateral thigh wound in the left lower extremity on the proximal aspect, which is currently dressed with some hematoma underneath, without any active bleeding. Neurologic: He is alert and oriented x3. LABORATORY DATA: At the time of discharge, WBC 6.06, hemoglobin 8.2, platelets 164,000. Sodium 127, chloride 89, BUN 72, creatinine 4.4, calcium is 7. However, his albumin is 2.8, so the corrected calcium is close to 8, and he is on calcium acetate. MICROBIOLOGY: Stool occult blood test during hospital admission was negative. IMAGING DURING HOSPITAL ADMISSION: 1. Chest x-ray on 10/17/2019 had cardiomegaly with pulmonary edema. 2. Hip and pelvis x-ray had intertrochanteric fracture of the left hip. 3. Abdomen ultrasound performed for abnormal LFTs had borderline splenomegaly. 4. Echocardiogram performed had pulmonary arterial hypertension with systolic pulmonary artery pressure of 85 to 90 mmHg, moderately severe degree of mitral regurgitation, mild degree of pulmonary regurgitation, moderately severe degree of tricuspid regurgitation, and ejection fraction of 57%. 5. Extremity venous studies on 10/23/2019 were essentially normal, without any DVT. 6. Electrocardiogram on 10/17/2019 had atrially paced rhythm with prolonged AV conduction. CONSULTATIONS DURING HOSPITAL ADMISSION: 1. Cardiology, Dr. Austin Claudio. 2. Orthopedics, Dr. Ma. 3. Pulmonology, Dr. Eduardo. 4. GI, Dr. Lamb. HOSPITAL COURSE SUMMARY: Mr. Green is a 74-year-old, man, who presented on 10/17/2019 after chief complaint of mechanical fall. In the emergency room, he was found to have a left intertrochanteric femoral fracture, so he was admitted for further management. On 10/18/2019, he underwent left trochanteric femoral nailing, which he tolerated well. His postoperative course was complicated by acute blood loss anemia, requiring 2 units of blood transfusion. At the time of discharge, his hemoglobin is stable. He will be going on multivitamins and iron. His fecal occult blood test was negative. He had complaints of repeated episodes of dizziness, lightheadedness, and near syncope, for which he underwent echocardiogram and Pulmonology as well as Cardiology consultation, and he was found to have severe mitral and tricuspid regurgitation, so medication adjustments were made, and he should follow up with outpatient preparing box tender. For his severe pulmonary hypertension, Pulmonology had recommended medical management, as well as dialysis. He underwent his routine Wednesday, Wednesday, Wednesday hemodialysis. He was continued on his home medications of calcium acetate, vitamin D, as well as sevelamer. He should have followup renal panel within 3 days' time. His atrial fibrillation was rate controlled on amiodarone and metoprolol, and he was on heparin for DVT prophylaxis. DISPOSITION: At the time of discharge, the patient was hemodynamically stable. All of his questions were answered. 35 minutes were spent in discharging this patient. He should received Wednesday, Wednesday, Wednesday hemodialysis through right chest hemodialysis catheter. cc: Robb Rea MD
[2019-10-25 13:29] VITALS: BP 106/49
--- NOTE | 2019-10-25 13:59 | NEPHROLOGY PROGRESS NOTE ---
DATE: 10/25/2019 SUBJECTIVE: He was able walk to the door and back. Only modest pain. Strength is improving. He is eating well. Normal bowel movements. No shortness of breath. OBJECTIVE: Vital Signs: Blood pressure 96/47, heart rate 70, respirations 16, afebrile. General: No acute distress. Skin: Warm and dry. Neck: Neck veins are not distended. Heart: Regular with MR murmur. Lungs: Equal. No crackles. Abdomen: Soft, nontender. Bowel sounds present. Extremities: No edema, clubbing or cyanosis. IMPRESSION: Chronic kidney disease 5d. He will undergo his routine hemodialysis treatment today. He appears euvolemic and electrolytes and acid-base are in target. Hemoglobin is below target but stable. No changes today. cc: Reji Antonio MD
--- NOTE | 2019-10-25 18:40 | PROVIDER PROGRESS NOTE ---
Progress Note Dr. Eduardo Progress Note/Pulmonary and or critical care Subjective: The patient is on dialysis. He stays he is fine. He reports his running nose is slightly improved. He denies any respiratory issue at this time. Objective: Vital Signs: T 98.5 (No fever in last 24 hours), NE 70, RR 16, BP 96/47 and SaO2 95% on room air. Physical Examination: General: sitting on the bedside chair. No acute distress noted. HEENT: Normocephalic. Atraumatic. Trachea midline. Mucosa pink and moist. PERRL. Oropharynx clear. Chest: Even and unlabored. Symmetrical excursion. Clear to auscultation bilaterally with good air entry. CVS: S1 and S2 appreciated. Murmur noted. Abdomen: Soft. Nondistended. Nontender. Bowel sounds present in all 4 quadrants. Extremities: No pedal edema. No cyanosis.No clubbing. Neuro: A/O x3. Speech fluent. Follow commands. Labs and Radiology: Laboratory Results 10/24/19 10/25/19 10/25/19 20:24 00:42 03:07 WBC RBC Hgb Hct MCV MCH MCHC RDW Std Deviation Plt Count MPV Sodium Potassium Chloride Carbon Dioxide Anion Gap BUN Creatinine Estimated GFR/1.73 m2 BUN/Creatinine Ratio Glucose POC Glucose 235 H Calculated Osmolality Calcium Phosphorus Albumin Plasma Lactate 1.7 1.0 10/25/19 10/25/19 10/25/19 05:58 05:58 05:58 WBC 6.06 RBC 2.55 L Hgb 8.2 L Hct 24.8 L MCV 97.3 MCH 32.2 H MCHC 33.1 RDW Std Deviation 17.0 H Plt Count 164 MPV 9.8 Sodium 127 L Potassium 4.1 D Chloride 89 L Carbon Dioxide 24 L Anion Gap 14 BUN 72 H Creatinine 4.4 H Estimated GFR/1.73 m2 13 BUN/Creatinine Ratio 16 Glucose 125 H POC Glucose Calculated Osmolality 278 Calcium 7.0 L* Phosphorus 3.6 Albumin 2.8 L Plasma Lactate 0.8 10/25/19 06:02 WBC RBC Hgb Hct MCV MCH MCHC RDW Std Deviation Plt Count MPV Sodium Potassium Chloride Carbon Dioxide Anion Gap BUN Creatinine Estimated GFR/1.73 m2 BUN/Creatinine Ratio Glucose POC Glucose 129 H Calculated Osmolality Calcium Phosphorus Albumin Plasma Lactate Assessment: MCKAY on home BiPAP therapy with NC 2L at bedtime. Severe pulmonary hypertension with pulmonary artery systolic pressure of 85-90 mmHg per echocardiogram on 10/19/19. Venous U/S bilateral legs on 10/23/19 is negative. Shock. Bilateral interstitial infiltrates vs. edema. The possibility of pneumonia is low. Patient does not have any respiratory distress. He is on room air. He has no fever. His WBC is WNL. End-stage renal disease. Hemodialysis Wednesday, Wednesday and Wednesday. Nephrology on board. Left intertrochanteric hip fracture secondary to a fall, s/p left trochanteric femoral nailing. Normocytic anemia. Stable. s/p transfusion of 1 unit PRBC on 10/23/19 and 1 unit LRRBC on 10/20/19. Plan: Continue BiPAP at bedtime with supplemental oxygen 2L. We recommend patient to use supplemental oxygen as needed during the daytime. We will monitor patients blood pressure closely. Continue Flonase and Zyrtec. We follow up CBC to make sure Hgb within the goal range and give PRBC transfusion if indicated. Continue bronchodilators. Continue physical therapy. We encourage patient to do deep breathing and coughing routinely. We encourage patient to use the incentive spirometer routinely. Continue GI and DVT prophylaxis. Rehab placement planning today.
== END 2019-10-25 15:07 | DRG 480 ==
LOC: ED 20:50 → 4N 22:56 → SUATTDRO 22:56
PROVIDERS: ATTEND Internal Medicine